=== PATIENT | male | born 1935 | race Caucasian/White ===

== ENCOUNTER 2016-09-29 07:56 | Day surgery (SDC) | payer MEDICARE, MEDICAID ==
[~2016-09-29] VITALS: Ht 162.6 cm; Wt 66.4 kg
[~2016-09-29 07:56] MED LIST: ACET-2247 PO; ASCO500 PO; BISA10S PR; CALC-898 PO; CLOT15C TP; DONE10TA PO; FAMO20 PO; LISI-660 PO; LOVA20 PO; MEMA5 PO; METF500T4 PO; MOM30 PO; MULT-1203 PO; PROHEAL PO; RISP.5 PO; SITA1TAB6 PO; TAMS0.4C32 PO
[2016-09-29] MEDS ORDERED: SODIUM CHLORIDE 0.9% 1,000 ML IV ONE ×2 (07:59→08:00)
[2016-09-29 08:32] LABS: GLUCOSE,POINT OF CARE 135 MG/DL (70-110)
[2016-09-29] MEDS ORDERED: CeFAZolin 1 GM/DEXTROSE 50 ML IV ONE (09:30)
[2016-09-29] MEDS ORDERED: FentaNYL CITRATE-PF 100 MCG/2 ML VIAL ONE (09:52)
[2016-09-29] MEDS ORDERED: MIDAZOLAM HCL 5 MG/ML VIAL ONE (09:52)
[2016-09-29 09:55] LABS: PROTHROMBIN TIME 10.7 SEC (9.4-11.6)
== END 2016-09-29 12:30 | disposition home or self-care (01) ==
LOC: SURGERY 07:56
PROVIDERS: ATTEND Internal Medicine Gastroenterology
DX: R13.10 Dysphagia, unspecified (principal); E11.9 Type 2 diabetes mellitus without complications; F10.21 Alcohol dependence, in remission; M54.9 Dorsalgia, unspecified; F03.90 Unspecified dementia, unspecified severity, without behavioral disturbance, psychotic disturbance, mood disturbance, and anxiety; I62.03 Nontraumatic chronic subdural hemorrhage; N40.0 Benign prostatic hyperplasia without lower urinary tract symptoms; Z87.891 Personal history of nicotine dependence; Z86.79 Personal history of other diseases of the circulatory system
CPT/HCPCS: 36415; 43246; 82962; 85610; 93005; J0690; J2250; J3010; J7030

== ENCOUNTER 2016-10-04 11:13 | Inpatient (IN) | payer MEDICARE, MEDICAID ==
[~2016-10-04] VITALS: Ht 167.6 cm; Wt 77.0 kg
[2016-10-04] MEDS ORDERED: NOREPINEPHRINE 4 MG/D5%-WATER 250 ML IV PRN ×3 (11:30→19:22)
[2016-10-04 11:33] LABS: GLUCOSE,POINT OF CARE 178 MG/DL (70-110)
[2016-10-04 12:20] LABS: BASOPHILS % (AUTO) 0.5 % (0.0-2.0); EOSINOPHILS % (AUTO) 0 % (1.0-6.0); HEMATOCRIT 35.8 % (41-53); HEMOGLOBIN 11.7 g/dL (13.5-17.5); LYMPHOCYTES # (AUTO) 0.4 K/uL (1.0-4.8); LYMPHOCYTES % (AUTO) 4.7 % (22.0-44.0); MEAN CORPUSCULAR HEMOGLOBIN 29.7 pg (26.0-34.0); MEAN CORPUSCULAR HGB CONC 32.8 G/dL (31.0-37.0); MEAN CORPUSCULAR VOLUME 90 fL (80-100); MONOCYTES # (AUTO) 0.1 K/uL (0.1-1.0); MONOCYTES % (AUTO) 0.8 % (2.0-9.0); NEUTROPHILS # (AUTO) 8.7 K/uL (1.8-7.7); PLATELET COUNT (AUTO) 134 K/uL (150-450); RED BLOOD CELL COUNT(AUTO) 3.96 MIL/uL (4.50-5.90); RED CELL DISTRIBUTION WIDTH 15.4 % (11.5-14.5); WHITE BLOOD COUNT (AUTO) 9.3 K/uL (4.5-11.0)
[2016-10-04 12:37] LABS: B-TYPE NATRIURETIC PEPTIDE 114 pg/mL (0-100)
[2016-10-04 12:40] LABS: ABG A-A DIFF O2 510.2 mmHg (10-20.0); ABG BASE EXCESS -6.1 mmol/L (-2.0-3.0); ABG HCO3 20.5 mmol/L (22.0-26.0); ABG OXYHEMOGLOBIN 98.1 % (94.0-100.0); ABG PCO2 29 mmHg (35-45); ABG PH 7.419 (7.35-7.450); TEMPERATURE, FAHRENHEIT, BG 99.6 FAHREN (96.0-98.6)
[2016-10-04 12:43] LABS: ALLEN TEST, BLOOD GAS Positive; IPAP, BG 14 cm H2O
[2016-10-04 12:43] LABS: RBC MORPHOLOGY COMMENT NORMAL RBC MORPH
[2016-10-04 12:44] LABS: ADD UA MICROSCOPIC YES; APPEARANCE,URINE CLOUDY (CLEAR); GLUCOSE, URINE (UA) NEGATIVE (NEGATIVE); KETONES,URINE TRACE mg/dL (NEGATIVE); LEUKOCYTE ESTERASE ,URINE SMALL (NEGATIVE); OCCULT BLOOD,URINE NEGATIVE (NEGATIVE); PROTEIN,URINE TRACE (NEGATIVE)
[2016-10-04 12:45] LABS: TROPONIN I 0.02 ng/mL (0.00-0.05)
[2016-10-04 12:50] LABS: ANION GAP 13 mmol/L (8-16); CALCIUM, TOTAL 7.2 mg/dL (8.8-10.5); CARBON DIOXIDE 22 mmol/L (22-29); CHLORIDE 106 mmol/L (98-107); CREATININE 1.23 mg/dL (0.60-1.30); GLOMERULAR FILTR. RATE CALC 56 mL/min (>60); POTASSIUM 4.5 mmol/L (3.5-5.1); SODIUM SERUM 141 mmol/L (136-145); UREA NITROGEN, BLOOD 32 mg/dL (7-18)
[2016-10-04 12:53] LABS: AMORPHOUS SEDIMENT,UR Moderate /LPF (None Seen); RBC,URINE 0-2 /HPF (0-2); SQUAMOUS EPITHELIAL CELL,UR Few /LPF (None Seen)
[2016-10-04] MEDS ORDERED: LEVOFLOXACIN 500 MG/D5% WATER 100 ML IV ONE (13:00)
[2016-10-04] MEDS ORDERED: PIPERACILLIN/TAZO 3.375 GM/D5W 50 ML IV ONE (13:00)
[2016-10-04 13:15] LABS: ALANINE AMINOTRANSFERASE 25 U/L (12-78); ALBUMIN 2.1 g/dL (3.4-5.0); ASPARTATE AMINOTRANSFERASE 22 U/L (15-37); BILIRUBIN,TOTAL 0.5 mg/dL (0.1-1.0); CREATINE KINASE, TOTAL 430 U/L (39-308); TOTAL PROTEIN, SERUM 6.2 g/dL (6.4-8.2)
[2016-10-04 13:27] LABS: LACTATE DEHYDROGENASE 207 U/L (85-227)
[2016-10-04] MEDS ORDERED: VANCOMYCIN HCL 1 GM/D5% WATER 200 ML IV ONE (15:15)
[2016-10-04] MEDS ORDERED: DEXTROSE 50%-WATER 25 GM/50 ML SYRINGE IVP PRN (15:45)
[2016-10-04] MEDS ORDERED: IPRATROPIUM BROMIDE 0.5 MG/2.5 ML NEB SOLUTION NEB PRN (15:45)
[2016-10-04] MEDS ORDERED: SODIUM CHLORIDE 0.9% 1,000 ML IV ONE (15:45)
[2016-10-04] MEDS ORDERED: ALBUTEROL SULFATE 2.5 MG/0.5 ML NEB SOLUTION NEB PRN (15:45)
[2016-10-04] MEDS ORDERED: ACETAMINOPHEN 325 MG TABLET PO PRN (15:45)
[2016-10-04] MEDS ORDERED: MAGNESIUM HYDROXIDE SUSPENSION 30 ML UDCUP PO PRN (15:45)
[2016-10-04 15:53] LABS: LACTIC ACID 5.2 mmol/L (0.4-2.0)
[2016-10-04 16:00] VITALS: BP 78/48
[2016-10-04 16:47] LABS: REFLEX LACTIC ACID? YES YES
[2016-10-04] MEDS ORDERED: LIDOCAINE HCL/PF 1% 5 ML VIAL ONE (16:56)
[2016-10-04] MEDS ORDERED: PNEUMOCOCCAL VACCINE POLYVALENT 0.5 ML VIAL [PPSV23] IM ONE (18:00)
[2016-10-04] MEDS: PIPERACILLIN/TAZO 3.375 GM/D5W 50 ML IV SCH (18:32)
[2016-10-04] MEDS: HEPARIN SODIUM,PORCINE 5,000 UNITS/ML VIAL SQ SCH ×2 (18:33→23:23)
[2016-10-04 19:47] LABS: GLUCOSE,POINT OF CARE 183 MG/DL (70-110)
[2016-10-04 20:00] VITALS: BP 120/74
[2016-10-04] MEDS: DOCUSATE SODIUM 100 MG CAPSULE PO SCH (20:35)
[2016-10-04] MEDS ORDERED: VANCOMYCIN HCL 500 MG in DEXTROSE 5%-WATER 100 ML IV ONE (22:00)
[2016-10-04] MEDS: INSULIN REGULAR, HUMAN 100 UNITS/ML SQ PRN (23:34)
[2016-10-05] VITALS (7 sets, daily range): BP systolic 96–107; BP diastolic 54–66
[2016-10-05] MEDS: PIPERACILLIN/TAZO 3.375 GM/D5W 50 ML IV SCH ×4 (00:34→18:10)
[2016-10-05 04:48] LABS: EOSINOPHILS % (AUTO) 0.5 % (1.0-6.0); HEMATOCRIT 29.7 % (41-53); HEMOGLOBIN 9.6 g/dL (13.5-17.5); LYMPHOCYTES # (AUTO) 0.6 K/uL (1.0-4.8); LYMPHOCYTES % (AUTO) 5.9 % (22.0-44.0); MEAN CORPUSCULAR HEMOGLOBIN 29.4 pg (26.0-34.0); MEAN CORPUSCULAR HGB CONC 32.4 G/dL (31.0-37.0); MEAN CORPUSCULAR VOLUME 91 fL (80-100); MONOCYTES # (AUTO) 0.1 K/uL (0.1-1.0); MONOCYTES % (AUTO) 1.1 % (2.0-9.0); NEUTROPHILS # (AUTO) 9.5 K/uL (1.8-7.7); PLATELET COUNT (AUTO) 137 K/uL (150-450); RED BLOOD CELL COUNT(AUTO) 3.27 MIL/uL (4.50-5.90); RED CELL DISTRIBUTION WIDTH 15.1 % (11.5-14.5); WHITE BLOOD COUNT (AUTO) 10.3 K/uL (4.5-11.0)
[2016-10-05] MEDS: INSULIN REGULAR, HUMAN 100 UNITS/ML SQ PRN (04:53)
[2016-10-05 04:55] LABS: ANION GAP 10 mmol/L (8-16); CALCIUM, TOTAL 6.9 mg/dL (8.8-10.5); CARBON DIOXIDE 24 mmol/L (22-29); CHLORIDE 107 mmol/L (98-107); CREATININE 1.01 mg/dL (0.60-1.30); GLOMERULAR FILTR. RATE CALC > 60 mL/min (>60); POTASSIUM 3.7 mmol/L (3.5-5.1); SODIUM SERUM 141 mmol/L (136-145); UREA NITROGEN, BLOOD 24 mg/dL (7-18)
[2016-10-05 05:06] LABS: NEUTROPHILS % (AUTO) 92.5 % (40.0-70.0)
[2016-10-05] MEDS: HEPARIN SODIUM,PORCINE 5,000 UNITS/ML VIAL SQ SCH ×3 (08:17→23:59)
[2016-10-05] MEDS: PANTOPRAZOLE SODIUM 40 MG/VIAL IVP SCH (08:17)
[2016-10-05] MEDS: DOCUSATE SODIUM 100 MG CAPSULE PO SCH ×2 (08:17→21:00)
[2016-10-05] MEDS: VANCOMYCIN HCL 1.25 GM in DEXTROSE 5%-WATER 250 ML IV SCH (08:17)
[2016-10-05 11:59] LABS: GLUCOSE,POINT OF CARE 108 MG/DL (70-110)
[2016-10-05] MEDS ORDERED: HEPARIN SODIUM 1000 UNITS/NS 500 ML ONE (13:58)
[2016-10-05 18:27] LABS: GLUCOSE,POINT OF CARE 103 MG/DL (70-110)
[2016-10-05 18:27] LABS: GLUCOSE COMMENT 1 Received Meds; GLUCOSE,POINT OF CARE 154 MG/DL (70-110)
[2016-10-05 18:27] LABS: GLUCOSE,POINT OF CARE 108 MG/DL (70-110)
[2016-10-05] MEDS: LACTOBACILLUS ACIDOPHILUS/BULGARICUS GRANULES PACKET PO SCH (21:14)
[2016-10-06 05:20] VITALS: BP 102/50
[2016-10-06 07:05] VITALS: BP 119/68
[2016-10-06 07:36] LABS: ANION GAP 10 mmol/L (8-16); CALCIUM, TOTAL 7.2 mg/dL (8.8-10.5); CARBON DIOXIDE 25 mmol/L (22-29); CHLORIDE 107 mmol/L (98-107); CREATININE 0.91 mg/dL (0.60-1.30); GLOMERULAR FILTR. RATE CALC > 60 mL/min (>60); POTASSIUM 3.1 mmol/L (3.5-5.1); SODIUM SERUM 142 mmol/L (136-145); UREA NITROGEN, BLOOD 17 mg/dL (7-18)
[2016-10-06 07:56] LABS: GLUCOSE,POINT OF CARE 99 MG/DL (70-110)
[2016-10-06 07:56] LABS: GLUCOSE,POINT OF CARE 83 MG/DL (70-110)
[2016-10-06] MEDS: LACTOBACILLUS ACIDOPHILUS/BULGARICUS GRANULES PACKET PO SCH ×3 (09:00→20:19)
[2016-10-06] MEDS: MULTIVITAMINS WITH MINERALS, THERAPEUTIC 15 ML UDCUP PEG SCH (09:00)
[2016-10-06] MEDS: HEPARIN SODIUM,PORCINE 5,000 UNITS/ML VIAL SQ SCH ×3 (09:55→23:57)
[2016-10-06] MEDS: PANTOPRAZOLE SODIUM 40 MG/VIAL IVP SCH (09:55)
[2016-10-06] MEDS: DOCUSATE SODIUM 100 MG CAPSULE PO SCH ×2 (09:55→20:19)
[2016-10-06] MEDS: PIPERACILLIN/TAZO 3.375 GM/D5W 50 ML IV SCH ×5 (09:55→23:58)
[2016-10-06 11:03] VITALS: BP 115/65
[2016-10-06] MEDS ORDERED: HEPARIN SODIUM 1000 UNITS/NS 500 ML ONE (11:39)
[2016-10-06] MEDS: VANCOMYCIN HCL 1.25 GM in DEXTROSE 5%-WATER 250 ML IV SCH (12:50)
[2016-10-06 15:13] VITALS: BP 125/65
[2016-10-06] MEDS ORDERED: POTASSIUM CHLORIDE 20 MEQ ER TABLET PO ONE (17:45)
[2016-10-06 19:55] VITALS: BP 137/70
[2016-10-07] VITALS (7 sets, daily range): BP systolic 104–120; BP diastolic 54–64
[2016-10-07 02:52] LABS: GLUCOSE,POINT OF CARE 128 MG/DL (70-110)
[2016-10-07 02:52] LABS: GLUCOSE COMMENT 1 Received Meds; GLUCOSE,POINT OF CARE 100 MG/DL (70-110)
[2016-10-07] MEDS: PIPERACILLIN/TAZO 3.375 GM/D5W 50 ML IV SCH ×3 (05:34→20:27)
[2016-10-07 06:09] LABS: ANION GAP 7 mmol/L (8-16); CALCIUM, TOTAL 7.1 mg/dL (8.8-10.5); CARBON DIOXIDE 26 mmol/L (22-29); CHLORIDE 107 mmol/L (98-107); GLOMERULAR FILTR. RATE CALC > 60 mL/min (>60); POTASSIUM 3.3 mmol/L (3.5-5.1); SODIUM SERUM 140 mmol/L (136-145); UREA NITROGEN, BLOOD 12 mg/dL (7-18)
[2016-10-07] MEDS: VANCOMYCIN HCL 1.25 GM in DEXTROSE 5%-WATER 250 ML IV SCH (08:15)
[2016-10-07] MEDS: LACTOBACILLUS ACIDOPHILUS/BULGARICUS GRANULES PACKET PO SCH ×3 (08:15→20:27)
[2016-10-07] MEDS: PANTOPRAZOLE SODIUM 40 MG/VIAL IVP SCH (08:15)
[2016-10-07] MEDS: HEPARIN SODIUM,PORCINE 5,000 UNITS/ML VIAL SQ SCH ×2 (08:15→16:30)
[2016-10-07] MEDS: MULTIVITAMINS WITH MINERALS, THERAPEUTIC 15 ML UDCUP PEG SCH (08:15)
[2016-10-07] MEDS: DOCUSATE SODIUM 100 MG CAPSULE PO SCH ×2 (08:15→20:27)
[2016-10-07] MEDS: INSULIN REGULAR, HUMAN 100 UNITS/ML SQ PRN (12:35)
[2016-10-07] MEDS: POTASSIUM CHLORIDE 20 MEQ ER TABLET PO PRN (13:56)
[2016-10-07 19:47] LABS: GLUCOSE,POINT OF CARE 138 MG/DL (70-110)
[2016-10-07 19:47] LABS: GLUCOSE COMMENT 1 Received Meds; GLUCOSE,POINT OF CARE 170 MG/DL (70-110)
[2016-10-07 19:47] LABS: GLUCOSE,POINT OF CARE 112 MG/DL (70-110)
[2016-10-07 20:36] LABS: BASOPHILS % (AUTO) 0.3 % (0.0-2.0); EOSINOPHILS % (AUTO) 1.8 % (1.0-6.0); HEMATOCRIT 26.3 % (41-53); HEMOGLOBIN 8.6 g/dL (13.5-17.5); LYMPHOCYTES # (AUTO) 0.7 K/uL (1.0-4.8); LYMPHOCYTES % (AUTO) 9.8 % (22.0-44.0); MEAN CORPUSCULAR HEMOGLOBIN 29.4 pg (26.0-34.0); MEAN CORPUSCULAR HGB CONC 32.9 G/dL (31.0-37.0); MEAN CORPUSCULAR VOLUME 89 fL (80-100); MONOCYTES # (AUTO) 0.3 K/uL (0.1-1.0); MONOCYTES % (AUTO) 4.6 % (2.0-9.0); NEUTROPHILS # (AUTO) 5.8 K/uL (1.8-7.7); NEUTROPHILS % (AUTO) 83.5 % (40.0-70.0); PLATELET COUNT (AUTO) 168 K/uL (150-450); RED BLOOD CELL COUNT(AUTO) 2.94 MIL/uL (4.50-5.90); RED CELL DISTRIBUTION WIDTH 15.1 % (11.5-14.5); WHITE BLOOD COUNT (AUTO) 6.9 K/uL (4.5-11.0)
[2016-10-08] MEDS: PIPERACILLIN/TAZO 3.375 GM/D5W 50 ML IV SCH ×4 (02:14→19:43)
[2016-10-08] MEDS: HEPARIN SODIUM,PORCINE 5,000 UNITS/ML VIAL SQ SCH ×4 (02:14→23:58)
[2016-10-08 04:55] VITALS: BP 114/56
[2016-10-08 06:14] LABS: BASOPHILS % (AUTO) 0.1 % (0.0-2.0); EOSINOPHILS % (AUTO) 1.9 % (1.0-6.0); HEMATOCRIT 26.2 % (41-53); HEMOGLOBIN 8.4 g/dL (13.5-17.5); LYMPHOCYTES # (AUTO) 0.7 K/uL (1.0-4.8); LYMPHOCYTES % (AUTO) 10.1 % (22.0-44.0); MEAN CORPUSCULAR HEMOGLOBIN 28.9 pg (26.0-34.0); MEAN CORPUSCULAR HGB CONC 32.2 G/dL (31.0-37.0); MEAN CORPUSCULAR VOLUME 90 fL (80-100); MONOCYTES # (AUTO) 0.4 K/uL (0.1-1.0); NEUTROPHILS # (AUTO) 5.3 K/uL (1.8-7.7); NEUTROPHILS % (AUTO) 81.9 % (40.0-70.0); PLATELET COUNT (AUTO) 168 K/uL (150-450); RED BLOOD CELL COUNT(AUTO) 2.92 MIL/uL (4.50-5.90); RED CELL DISTRIBUTION WIDTH 15.1 % (11.5-14.5); WHITE BLOOD COUNT (AUTO) 6.5 K/uL (4.5-11.0)
[2016-10-08 06:32] LABS: ANION GAP 6 mmol/L (8-16); CARBON DIOXIDE 28 mmol/L (22-29); CHLORIDE 106 mmol/L (98-107); CREATININE 0.73 mg/dL (0.60-1.30); GLOMERULAR FILTR. RATE CALC > 60 mL/min (>60); POTASSIUM 3.3 mmol/L (3.5-5.1); SODIUM SERUM 140 mmol/L (136-145); UREA NITROGEN, BLOOD 8 mg/dL (7-18)
[2016-10-08 07:21] VITALS: BP 107/53
[2016-10-08] MEDS: DOCUSATE SODIUM 100 MG CAPSULE PO SCH ×2 (09:39→23:57)
[2016-10-08] MEDS: LACTOBACILLUS ACIDOPHILUS/BULGARICUS GRANULES PACKET PO SCH ×3 (09:39→20:52)
[2016-10-08] MEDS: MULTIVITAMINS WITH MINERALS, THERAPEUTIC 15 ML UDCUP PEG SCH (09:39)
[2016-10-08] MEDS: PANTOPRAZOLE SODIUM 40 MG/VIAL IVP SCH (09:40)
[2016-10-08] MEDS: VANCOMYCIN HCL 1.25 GM in DEXTROSE 5%-WATER 250 ML IV SCH (09:46)
[2016-10-08 11:38] VITALS: BP 121/66
[2016-10-08] MEDS: POTASSIUM CHLORIDE 20 MEQ ER TABLET PO PRN (11:57)
[2016-10-08] MEDS: INSULIN REGULAR, HUMAN 100 UNITS/ML SQ PRN (12:07)
[2016-10-08 15:26] VITALS: BP 124/58
[2016-10-08] MEDS ORDERED: SODIUM CHLORIDE 0.9% 250 ML IV ONE (19:36)
[2016-10-08 20:02] VITALS: BP 123/56
[2016-10-08 20:27] LABS: GLUCOSE COMMENT 1 Received Meds; GLUCOSE,POINT OF CARE 139 MG/DL (70-110)
[2016-10-08 20:27] LABS: GLUCOSE,POINT OF CARE 139 MG/DL (70-110)
[2016-10-08] MEDS: VANCOMYCIN HCL 1 GM/D5% WATER 200 ML IV SCH (20:52)
[2016-10-08 23:43] VITALS: BP 117/58
[2016-10-09] MEDS: INSULIN REGULAR, HUMAN 100 UNITS/ML SQ PRN ×3 (00:14→17:24)
[2016-10-09] MEDS ORDERED: SODIUM CL IRRIG SOLN BOTTLE 0 ML IRRIG ONE (00:36)
[2016-10-09] MEDS: PIPERACILLIN/TAZO 3.375 GM/D5W 50 ML IV SCH ×4 (00:57→18:14)
[2016-10-09 05:24] VITALS: BP 105/53
[2016-10-09 06:33] LABS: ANION GAP 6 mmol/L (8-16); BASOPHILS # (AUTO) 0.01 K/uL (0.00-0.20); BASOPHILS % (AUTO) 0.1 % (0.0-2.0); CALCIUM, TOTAL 7.4 mg/dL (8.8-10.5); CARBON DIOXIDE 27 mmol/L (22-29); CHLORIDE 105 mmol/L (98-107); CREATININE 0.76 mg/dL (0.60-1.30); EOSINOPHILS # (AUTO) 0.11 K/uL (0.00-0.70); EOSINOPHILS % (AUTO) 1.77 % (1.0-6.0); GLOMERULAR FILTR. RATE CALC > 60 mL/min (>60); HEMATOCRIT 24.3 % (41-53); HEMOGLOBIN 8.2 g/dL (13.5-17.5); LYMPHOCYTES # (AUTO) 0.8 K/uL (1.0-4.8); MEAN CORPUSCULAR HGB CONC 33.6 G/dL (31.0-37.0); MEAN CORPUSCULAR VOLUME 89 fL (80-100); MONOCYTES # (AUTO) 0.5 K/uL (0.1-1.0); MONOCYTES % (AUTO) 7.5 % (2.0-9.0); NEUTROPHILS % (AUTO) 78.6 % (40.0-70.0); PLATELET COUNT (AUTO) 172 K/uL (150-450); POTASSIUM 3.5 mmol/L (3.5-5.1); RED BLOOD CELL COUNT(AUTO) 2.72 MIL/uL (4.50-5.90); SODIUM SERUM 138 mmol/L (136-145); UREA NITROGEN, BLOOD 8 mg/dL (7-18); WHITE BLOOD COUNT (AUTO) 6.4 K/uL (4.5-11.0)
[2016-10-09 07:09] VITALS: BP 116/49
[2016-10-09] MEDS: DOCUSATE SODIUM 100 MG CAPSULE PO SCH ×2 (07:29→21:14)
[2016-10-09] MEDS: LACTOBACILLUS ACIDOPHILUS/BULGARICUS GRANULES PACKET PO SCH ×3 (07:29→21:14)
[2016-10-09] MEDS: MULTIVITAMINS WITH MINERALS, THERAPEUTIC 15 ML UDCUP PEG SCH (07:29)
[2016-10-09] MEDS: PANTOPRAZOLE SODIUM 40 MG/VIAL IVP SCH (07:29)
[2016-10-09] MEDS: HEPARIN SODIUM,PORCINE 5,000 UNITS/ML VIAL SQ SCH ×2 (07:29→17:18)
[2016-10-09 07:57] LABS: GLUCOSE COMMENT 1 Received Meds; GLUCOSE,POINT OF CARE 185 MG/DL (70-110)
[2016-10-09] MEDS: VANCOMYCIN HCL 1 GM/D5% WATER 200 ML IV SCH ×2 (08:42→20:38)
[2016-10-09 11:08] VITALS: BP 120/62
[2016-10-09 15:22] VITALS: BP 123/63
[2016-10-09] MEDS: POTASSIUM CHL 10 MEQ/WATER 50 ML IV PRN ×2 (17:27→23:00)
[2016-10-09] MEDS ORDERED: SODIUM CHLORIDE 0.9% 500 ML IV ONE (17:27)
[2016-10-09 18:13] LABS: GLUCOSE COMMENT 1 Received Meds; GLUCOSE,POINT OF CARE 213 MG/DL (70-110)
[2016-10-09 18:13] LABS: GLUCOSE COMMENT 1 Received Meds; GLUCOSE,POINT OF CARE 182 MG/DL (70-110)
[2016-10-09 18:13] LABS: GLUCOSE,POINT OF CARE 132 MG/DL (70-110)
[2016-10-09 18:42] LABS: GLUCOSE COMMENT 1 Received Meds; GLUCOSE,POINT OF CARE 170 MG/DL (70-110)
[2016-10-09 19:53] VITALS: BP 130/55
[2016-10-10] VITALS: BP 129/63
[2016-10-10] MEDS: HEPARIN SODIUM,PORCINE 5,000 UNITS/ML VIAL SQ SCH ×3 (01:22→16:19)
[2016-10-10] MEDS: PIPERACILLIN/TAZO 3.375 GM/D5W 50 ML IV SCH ×3 (01:23→13:21)
[2016-10-10] MEDS: INSULIN REGULAR, HUMAN 100 UNITS/ML SQ PRN ×3 (01:37→11:10)
[2016-10-10] MEDS: POTASSIUM CHL 10 MEQ/WATER 50 ML IV PRN (02:45)
[2016-10-10 03:01] LABS: GLUCOSE COMMENT 1 Received Meds; GLUCOSE,POINT OF CARE 144 MG/DL (70-110)
[2016-10-10 05:54] VITALS: BP 107/55
[2016-10-10 06:20] LABS: BASOPHILS % (AUTO) 0.1 % (0.0-2.0); EOSINOPHILS % (AUTO) 1.8 % (1.0-6.0); HEMATOCRIT 26.2 % (41-53); HEMOGLOBIN 8.5 g/dL (13.5-17.5); LYMPHOCYTES # (AUTO) 0.9 K/uL (1.0-4.8); LYMPHOCYTES % (AUTO) 13.7 % (22.0-44.0); MEAN CORPUSCULAR HEMOGLOBIN 29.4 pg (26.0-34.0); MEAN CORPUSCULAR HGB CONC 32.4 G/dL (31.0-37.0); MEAN CORPUSCULAR VOLUME 91 fL (80-100); MONOCYTES # (AUTO) 0.4 K/uL (0.1-1.0); MONOCYTES % (AUTO) 6.3 % (2.0-9.0); NEUTROPHILS # (AUTO) 5.2 K/uL (1.8-7.7); NEUTROPHILS % (AUTO) 78.1 % (40.0-70.0); PLATELET COUNT (AUTO) 208 K/uL (150-450); RED BLOOD CELL COUNT(AUTO) 2.89 MIL/uL (4.50-5.90); RED CELL DISTRIBUTION WIDTH 15.1 % (11.5-14.5); WHITE BLOOD COUNT (AUTO) 6.7 K/uL (4.5-11.0)
[2016-10-10 06:25] LABS: ANION GAP 6 mmol/L (8-16); CALCIUM, TOTAL 7.5 mg/dL (8.8-10.5); CARBON DIOXIDE 28 mmol/L (22-29); CHLORIDE 105 mmol/L (98-107); GLOMERULAR FILTR. RATE CALC > 60 mL/min (>60); SODIUM SERUM 139 mmol/L (136-145); UREA NITROGEN, BLOOD 9 mg/dL (7-18)
[2016-10-10 06:59] LABS: GLUCOSE COMMENT 1 Received Meds; GLUCOSE,POINT OF CARE 165 MG/DL (70-110)
[2016-10-10 07:34] VITALS: BP 112/57
[2016-10-10] MEDS: LACTOBACILLUS ACIDOPHILUS/BULGARICUS GRANULES PACKET PO SCH ×2 (07:58→16:19)
[2016-10-10] MEDS: DOCUSATE SODIUM 100 MG CAPSULE PO SCH (07:58)
[2016-10-10] MEDS: MULTIVITAMINS WITH MINERALS, THERAPEUTIC 15 ML UDCUP PEG SCH (07:58)
[2016-10-10] MEDS: PANTOPRAZOLE SODIUM 40 MG/VIAL IVP SCH (07:58)
[2016-10-10] MEDS: VANCOMYCIN HCL 1 GM/D5% WATER 200 ML IV SCH (07:59)
[2016-10-10 11:30] VITALS: BP 126/66
[2016-10-10 11:57] LABS: GLUCOSE COMMENT 1 Received Meds; GLUCOSE,POINT OF CARE 216 MG/DL (70-110)
[2016-10-10 15:22] VITALS: BP 122/59
== END 2016-10-10 17:00 | DRG 871 ==
LOC: EMS 11:15 → ICU 14:26 → 5N 10-05 22:30 → 5S 10-09 18:10
PROVIDERS: ADMIT Internal Medicine; ATTEND Internal Medicine
PROC: 5A09357 Assistance with Respiratory Ventilation, Less than 24 Consecutive Hours, Continuous Positive Airway Pressure (ICD-10-PCS; principal; 2016-10-04)
PROC: 02HV33Z Insertion of Infusion Device into Superior Vena Cava, Percutaneous Approach (ICD-10-PCS; 2016-10-04)
PROC: B548ZZA Ultrasonography of Superior Vena Cava, Guidance (ICD-10-PCS; 2016-10-04)
PROC: 06HM33Z Insertion of Infusion Device into Right Femoral Vein, Percutaneous Approach (ICD-10-PCS; 2016-10-04)
PROC: B54BZZA Ultrasonography of Right Lower Extremity Veins, Guidance (ICD-10-PCS; 2016-10-04)
DX: A41.01 Sepsis due to Methicillin susceptible Staphylococcus aureus (principal); E43 Unspecified severe protein-calorie malnutrition; J96.01 Acute respiratory failure with hypoxia; J18.9 Pneumonia, unspecified organism; R65.21 Severe sepsis with septic shock; R62.7 Adult failure to thrive; E11.9 Type 2 diabetes mellitus without complications; F03.90 Unspecified dementia, unspecified severity, without behavioral disturbance, psychotic disturbance, mood disturbance, and anxiety; R13.10 Dysphagia, unspecified; E78.5 Hyperlipidemia, unspecified; I10 Essential (primary) hypertension; Z66 Do not resuscitate; Z86.73 Personal history of transient ischemic attack (TIA), and cerebral infarction without residual deficits; Z93.1 Gastrostomy status; Z68.27 Body mass index [BMI] 27.0-27.9, adult
CPT/HCPCS: 36569; 51702; 70450; 71250; 82271; 82805; 82962; 83605; 83615; 84132; 86850; 86900; 86901; 87040; 87081; 87086; 87324; 87449; 90471; 93005; 93306; 96365; 96366; 96367; 96368; 99291; C9113; J1644; J1956; J2543; J3370; J3480; J3490; J7030; J7040; J7050; J7060

== ENCOUNTER 2016-11-24 01:36 | Inpatient (IN) | payer MEDICARE, MEDICAID ==
[~2016-11-24] VITALS: Ht 177.8 cm; Wt 76.9 kg
[~2016-11-24 01:36] MED LIST changes: -CLOT15C TP; -METF500T4 PO; -PROHEAL PO; -RISP.5 PO; -TAMS0.4C32 PO
[2016-11-24] MEDS ORDERED: HEPA100D17 SQ (01:52)
[2016-11-24 02:42] LABS: ANION GAP 8 mmol/L (8-16); CARBON DIOXIDE 26 mmol/L (22-29); CHLORIDE 102 mmol/L (98-107); CREATININE 1.16 mg/dL (0.60-1.30); GLOMERULAR FILTR. RATE CALC 60 mL/min (>60); POTASSIUM 4.7 mmol/L (3.5-5.1); SODIUM SERUM 136 mmol/L (136-145); UREA NITROGEN, BLOOD 50 mg/dL (7-18)
[2016-11-24 02:48] LABS: ALANINE AMINOTRANSFERASE 21 U/L (12-78); ALBUMIN 1.9 g/dL (3.4-5.0); ASPARTATE AMINOTRANSFERASE 22 U/L (15-37); BILIRUBIN,TOTAL 0.3 mg/dL (0.1-1.0); TOTAL PROTEIN, SERUM 7.3 g/dL (6.4-8.2)
[2016-11-24 02:53] LABS: BASOPHILS # (AUTO) 0.01 K/uL (0.00-0.20); BASOPHILS % (AUTO) 0.1 % (0.0-2.0); EOSINOPHILS # (AUTO) 0.06 K/uL (0.00-0.70); EOSINOPHILS % (AUTO) 0.78 % (1.0-6.0); HEMATOCRIT 24.1 % (41-53); HEMOGLOBIN 7.8 g/dL (13.5-17.5); LYMPHOCYTES # (AUTO) 0.8 K/uL (1.0-4.8); MEAN CORPUSCULAR HEMOGLOBIN 28.4 pg (26.0-34.0); MEAN CORPUSCULAR HGB CONC 32.2 G/dL (31.0-37.0); MEAN CORPUSCULAR VOLUME 88 fL (80-100); MONOCYTES # (AUTO) 0.4 K/uL (0.1-1.0); MONOCYTES % (AUTO) 5.2 % (2.0-9.0); NEUTROPHILS # (AUTO) 6.3 K/uL (1.8-7.7); NEUTROPHILS % (AUTO) 83.9 % (40.0-70.0); PLATELET COUNT (AUTO) 238 K/uL (150-450); RED BLOOD CELL COUNT(AUTO) 2.73 MIL/uL (4.50-5.90); RED CELL DISTRIBUTION WIDTH 17.6 % (11.5-14.5); WHITE BLOOD COUNT (AUTO) 7.5 K/uL (4.5-11.0)
[2016-11-24 02:58] LABS: PROTHROMBIN TIME 10.7 SEC (9.4-11.6)
[2016-11-24 02:59] LABS: APPEARANCE,URINE CLOUDY (CLEAR); GLUCOSE, URINE (UA) NEGATIVE (NEGATIVE); KETONES,URINE NEGATIVE (NEGATIVE); LEUKOCYTE ESTERASE ,URINE LARGE (NEGATIVE); OCCULT BLOOD,URINE MODERATE (NEGATIVE); PH,URINE 8.5 (5.0-8.0); PROTEIN,URINE POS 1+ (NEGATIVE)
[2016-11-24 03:05] LABS: ADD UA MICROSCOPIC YES
[2016-11-24 03:08] LABS: LACTIC ACID 2.6 mmol/L (0.4-2.0)
[2016-11-24 03:31] LABS: SQUAMOUS EPITHELIAL CELL,UR Few /LPF (None Seen); TRIPLE PHOSPHATE CRYSTAL,UR Moderate /LPF (None Seen)
[2016-11-24] MEDS ORDERED: ALBUTEROL SULFATE 2.5 MG/0.5 ML NEB SOLUTION NEB ONE (03:45)
[2016-11-24] MEDS ORDERED: 0.9% SODIUM CHLORIDE 5 ML NEB SOLUTION NEB ONE ×2 (03:55→18:55)
[2016-11-24 04:27] LABS: REFLEX LACTIC ACID? YES YES
[2016-11-24] MEDS ORDERED: CefTRIAXone SODIUM 2 GM in DEXTROSE 5%-WATER 50 ML IV ONE (04:45)
[2016-11-24] MEDS ORDERED: VANCOMYCIN HCL 1 GM/D5% WATER 200 ML IV ONE (04:45)
[2016-11-24] MEDS ORDERED: ACETAMINOPHEN 650 MG RECTAL SUPPOSITORY PR ONE ×2 (05:30)
[2016-11-24] MEDS ORDERED: PERMETHRIN 5% 60 GM CREAM TP ONE (06:15)
[2016-11-24] MEDS ORDERED: SODIUM CHLORIDE 0.9% 1,000 ML IV ONE ×2 (06:15→12:15)
[2016-11-24] MEDS ORDERED: MORPHINE SULFATE 2 MG/ML SYRINGE IVP PRN (07:30)
[2016-11-24 08:17] LABS: GLUCOSE,POINT OF CARE 133 MG/DL (70-110)
[2016-11-24] MEDS ORDERED: VANCOMYCIN HCL 500 MG in DEXTROSE 5%-WATER 100 ML IV ONE (08:30)
[2016-11-24] MEDS ORDERED: OxyCODONE HCL/ACETAMINOPHEN 5-325 MG TABLET PO PRN ×2 (08:45)
[2016-11-24] MEDS ORDERED: *CLINICAL-LEVOFLOXACIN IVPB DOSING CLINICAL ONE ×2 (08:45)
[2016-11-24] MEDS ORDERED: ONDANSETRON HCL 4 MG/2 ML VIAL IVP PRN (08:45)
[2016-11-24] MEDS ORDERED: 0.9% SODIUM CHLORIDE 10 ML SYRINGE IVP PRN (08:45)
[2016-11-24] MEDS ORDERED: CefTRIAXone 1 GM/DEXTROSE 50 ML IV ONE (09:00)
[2016-11-24] MEDS ORDERED: DOCUSATE SODIUM 100 MG CAPSULE PO SCH (09:00)
[2016-11-24] MEDS ORDERED: MetroNIDAZOLE 500 MG TABLET PO SCH (09:00)
[2016-11-24] MEDS ORDERED: ENOXAPARIN SODIUM 40 MG/0.4 ML PF SYRINGE SQ SCH ×2 (09:00)
[2016-11-24 09:22] VITALS: BP 103/58
[2016-11-24 09:22] LABS: GLUCOSE,POINT OF CARE 123 MG/DL (70-110)
[2016-11-24 09:40] VITALS: BP 103/58
[2016-11-24] MEDS ORDERED: LEVOFLOXACIN 750 MG/D5% WATER 150 ML IV SCH (10:00)
[2016-11-24] MEDS ORDERED: ALBUTEROL SULFATE 2.5 MG/0.5 ML NEB SOLUTION NEB SCH (11:00)
[2016-11-24] MEDS: PANTOPRAZOLE SODIUM 40 MG/VIAL IVP SCH (11:19)
[2016-11-24 12:00] VITALS: BP 103/60
[2016-11-24] MEDS ORDERED: SODIUM CHLORIDE 0.9% 250 ML IV ONE (12:43)
[2016-11-24] MEDS: MetroNIDAZOLE 500 MG/NACL 100 ML IV SCH ×2 (12:49→21:02)
[2016-11-24] MEDS ORDERED: PNEUMOCOCCAL VACCINE POLYVALENT 0.5 ML VIAL [PPSV23] IM ONE (15:15)
[2016-11-24 16:00] VITALS: BP 98/51
[2016-11-24 20:00] VITALS: BP 115/50
[2016-11-24] MEDS ORDERED: DOCUSATE SODIUM 100 MG CAPSULE PO PRN (21:00)
[2016-11-25] VITALS (12 sets, daily range): BP systolic 110–129; BP diastolic 50–76
[2016-11-25] MEDS: MetroNIDAZOLE 500 MG/NACL 100 ML IV SCH ×3 (05:12→20:03)
[2016-11-25 05:58] LABS: BASOPHILS # (AUTO) 0.01 K/uL (0.00-0.20); BASOPHILS % (AUTO) 0.2 % (0.0-2.0); EOSINOPHILS # (AUTO) 0.27 K/uL (0.00-0.70); EOSINOPHILS % (AUTO) 6.89 % (1.0-6.0); LYMPHOCYTES # (AUTO) 0.7 K/uL (1.0-4.8); LYMPHOCYTES % (AUTO) 16.7 % (22.0-44.0); MEAN CORPUSCULAR HEMOGLOBIN 28.2 pg (26.0-34.0); MEAN CORPUSCULAR VOLUME 88 fL (80-100); MONOCYTES # (AUTO) 0.4 K/uL (0.1-1.0); MONOCYTES % (AUTO) 10.1 % (2.0-9.0); NEUTROPHILS # (AUTO) 2.6 K/uL (1.8-7.7); NEUTROPHILS % (AUTO) 66.1 % (40.0-70.0); PLATELET COUNT (AUTO) 216 K/uL (150-450); RED BLOOD CELL COUNT(AUTO) 2.38 MIL/uL (4.50-5.90); RED CELL DISTRIBUTION WIDTH 17.1 % (11.5-14.5); WHITE BLOOD COUNT (AUTO) 3.9 K/uL (4.5-11.0)
[2016-11-25 06:15] LABS: ANION GAP 9 mmol/L (8-16); CALCIUM, TOTAL 7.8 mg/dL (8.8-10.5); CARBON DIOXIDE 25 mmol/L (22-29); CHLORIDE 108 mmol/L (98-107); CREATININE 1.03 mg/dL (0.60-1.30); GLOMERULAR FILTR. RATE CALC > 60 mL/min (>60); SODIUM SERUM 142 mmol/L (136-145); UREA NITROGEN, BLOOD 35 mg/dL (7-18)
[2016-11-25 07:03] LABS: HEMOGLOBIN 6.7 g/dL (13.5-17.5)
[2016-11-25 07:04] LABS: HEMATOCRIT 20.9 % (41-53)
[2016-11-25 07:07] LABS: ALANINE AMINOTRANSFERASE 21 U/L (12-78); ALBUMIN 1.7 g/dL (3.4-5.0); ASPARTATE AMINOTRANSFERASE 26 U/L (15-37); BILIRUBIN,TOTAL 0.3 mg/dL (0.1-1.0); TOTAL PROTEIN, SERUM 6.5 g/dL (6.4-8.2)
[2016-11-25] MEDS ORDERED: SODIUM CHLORIDE 0.9% 500 ML IV ONE (07:48)
[2016-11-25 08:36] LABS: RBC MORPHOLOGY COMMENT ABNORMAL RBC MORPH
[2016-11-25] MEDS: PANTOPRAZOLE SODIUM 40 MG/VIAL IVP SCH (10:20)
[2016-11-25] MEDS ORDERED: VANCOMYCIN HCL 1 GM/D5% WATER 200 ML IV ONE (10:30)
[2016-11-25] MEDS ORDERED: HEPA500017 SQ (11:17)
[2016-11-25 18:11] LABS: HEMATOCRIT 25.8 % (41-53); HEMOGLOBIN 8.4 g/dL (13.5-17.5)
[2016-11-25] MEDS: VANCOMYCIN HCL 750 MG in DEXTROSE 5%-WATER 150 ML IV SCH (20:03)
[2016-11-26] VITALS (7 sets, daily range): BP systolic 109–147; BP diastolic 53–78
[2016-11-26] MEDS: MetroNIDAZOLE 500 MG/NACL 100 ML IV SCH ×3 (03:54→19:52)
[2016-11-26 06:02] LABS: BASOPHILS # (AUTO) 0.02 K/uL (0.00-0.20); BASOPHILS % (AUTO) 0.5 % (0.0-2.0); EOSINOPHILS # (AUTO) 0.57 K/uL (0.00-0.70); EOSINOPHILS % (AUTO) 13.47 % (1.0-6.0); HEMATOCRIT 25.7 % (41-53); HEMOGLOBIN 8.2 g/dL (13.5-17.5); LYMPHOCYTES # (AUTO) 0.8 K/uL (1.0-4.8); LYMPHOCYTES % (AUTO) 19.6 % (22.0-44.0); MEAN CORPUSCULAR HEMOGLOBIN 28.6 pg (26.0-34.0); MEAN CORPUSCULAR HGB CONC 32.1 G/dL (31.0-37.0); MEAN CORPUSCULAR VOLUME 89 fL (80-100); MONOCYTES # (AUTO) 0.3 K/uL (0.1-1.0); MONOCYTES % (AUTO) 8.1 % (2.0-9.0); NEUTROPHILS # (AUTO) 2.5 K/uL (1.8-7.7); NEUTROPHILS % (AUTO) 58.4 % (40.0-70.0); PLATELET COUNT (AUTO) 230 K/uL (150-450); RED BLOOD CELL COUNT(AUTO) 2.89 MIL/uL (4.50-5.90); RED CELL DISTRIBUTION WIDTH 16.5 % (11.5-14.5); WHITE BLOOD COUNT (AUTO) 4.2 K/uL (4.5-11.0)
[2016-11-26 06:45] LABS: ANION GAP 8 mmol/L (8-16); CARBON DIOXIDE 26 mmol/L (22-29); CHLORIDE 110 mmol/L (98-107); CREATININE 0.91 mg/dL (0.60-1.30); GLOMERULAR FILTR. RATE CALC > 60 mL/min (>60); POTASSIUM 3.5 mmol/L (3.5-5.1); SODIUM SERUM 144 mmol/L (136-145); UREA NITROGEN, BLOOD 27 mg/dL (7-18)
[2016-11-26] MEDS: VANCOMYCIN HCL 750 MG in DEXTROSE 5%-WATER 150 ML IV SCH ×2 (08:50→21:15)
[2016-11-26] MEDS: PANTOPRAZOLE SODIUM 40 MG/VIAL IVP SCH (08:51)
[2016-11-26] MEDS: LEVOFLOXACIN 750 MG/D5% WATER 150 ML IV SCH ×2 (10:00→13:06)
[2016-11-26] MEDS: MULTIVITAMINS WITH MINERALS, THERAPEUTIC 15 ML UDCUP PEG SCH ×3 (12:56→13:07)
[2016-11-26] MEDS: CefTRIAXone 1 GM/DEXTROSE 50 ML IV SCH (23:20)
[2016-11-27] MEDS: MetroNIDAZOLE 500 MG/NACL 100 ML IV SCH ×3 (02:58→21:02)
[2016-11-27 04:30] VITALS: BP 138/69
[2016-11-27 07:25] VITALS: BP 108/61
[2016-11-27] MEDS ORDERED: SODIUM CHLORIDE 0.9% 100 ML ONE (07:49)
[2016-11-27] MEDS: VANCOMYCIN HCL 750 MG in DEXTROSE 5%-WATER 150 ML IV SCH (08:00)
[2016-11-27] MEDS: MULTIVITAMINS WITH MINERALS, THERAPEUTIC 15 ML UDCUP PEG SCH (08:01)
[2016-11-27] MEDS: PANTOPRAZOLE SODIUM 40 MG/VIAL IVP SCH (08:01)
[2016-11-27 08:05] LABS: ANION GAP 8 mmol/L (8-16); CALCIUM, TOTAL 7.8 mg/dL (8.8-10.5); CARBON DIOXIDE 25 mmol/L (22-29); CHLORIDE 114 mmol/L (98-107); CREATININE 0.98 mg/dL (0.60-1.30); GLOMERULAR FILTR. RATE CALC > 60 mL/min (>60); POTASSIUM 3.2 mmol/L (3.5-5.1); SODIUM SERUM 147 mmol/L (136-145); UREA NITROGEN, BLOOD 24 mg/dL (7-18)
[2016-11-27 11:59] VITALS: BP 134/72
[2016-11-27 15:09] VITALS: BP 138/64
[2016-11-27] MEDS ORDERED: FUROSEMIDE 20 MG/2 ML VIAL IVP ONE (17:00)
[2016-11-27] MEDS ORDERED: POTASSIUM CHLORIDE 20 MEQ ER TABLET PO PRN (17:00)
[2016-11-27] MEDS: POTASSIUM CHL 10 MEQ/WATER 50 ML IV PRN (18:04)
[2016-11-27] MEDS ORDERED: SODIUM CHLORIDE 0.9% 500 ML IV ONE (19:52)
[2016-11-27 20:11] VITALS: BP 142/73
[2016-11-27] MEDS: VANCOMYCIN HCL 1 GM/D5% WATER 200 ML IV SCH (22:03)
[2016-11-27] MEDS: CefTRIAXone 1 GM/DEXTROSE 50 ML IV SCH (23:59)
[2016-11-28 00:30] VITALS: BP 129/72
[2016-11-28] MEDS: POTASSIUM CHL 10 MEQ/WATER 50 ML IV PRN ×2 (00:43→02:02)
[2016-11-28] MEDS: MetroNIDAZOLE 500 MG/NACL 100 ML IV SCH ×2 (03:01→11:43)
[2016-11-28 04:27] VITALS: BP 135/68
[2016-11-28 04:44] LABS: ANION GAP 2 mmol/L (8-16); CALCIUM, TOTAL 7.5 mg/dL (8.8-10.5); CARBON DIOXIDE 26 mmol/L (22-29); CHLORIDE 110 mmol/L (98-107); CREATININE 1.05 mg/dL (0.60-1.30); GLOMERULAR FILTR. RATE CALC > 60 mL/min (>60); POTASSIUM 3.3 mmol/L (3.5-5.1); SODIUM SERUM 138 mmol/L (136-145); UREA NITROGEN, BLOOD 24 mg/dL (7-18)
[2016-11-28] MEDS ORDERED: POTASSIUM CHL 10 MEQ/WATER 50 ML IV PRN (05:30)
[2016-11-28] MEDS ORDERED: POTASSIUM CHLORIDE 10% 40 MEQ/30 ML LIQUID UDCUP GT PRN ×2 (05:30)
[2016-11-28 07:21] VITALS: BP 136/72
[2016-11-28] MEDS ORDERED: AMINO ACIDS/PROTEIN HYDROLYS 30 ML TUBE PO SCH (08:00)
[2016-11-28] MEDS: MULTIVITAMINS WITH MINERALS, THERAPEUTIC 15 ML UDCUP PEG SCH (09:05)
[2016-11-28] MEDS: VANCOMYCIN HCL 1 GM/D5% WATER 200 ML IV SCH (09:05)
[2016-11-28] MEDS: PANTOPRAZOLE SODIUM 40 MG/VIAL IVP SCH (09:05)
[2016-11-28 11:13] VITALS: BP 136/64
[2016-11-28 15:57] VITALS: BP 139/66
[2016-11-28] MEDS ORDERED: DSS100 PO (19:26)
[2016-11-28] MEDS ORDERED: OMEP20 PO (19:26)
[2016-11-28] MEDS ORDERED: AMIN30LI28 PO (19:26)
[2016-11-28] MEDS ORDERED: OXYC-341 PO (19:27)
[2016-11-28] MEDS ORDERED: CEFU250T87 GT (19:29)
[2016-11-28] MEDS ORDERED: CEFUROXIME AXETIL 250 MG TABLET GT SCH (21:00)
[2016-11-28] MEDS ORDERED: CEFUROXIME AXETIL 250 MG TABLET NG SCH (21:00)
== END 2016-11-28 19:30 | DRG 871 ==
LOC: EMS 01:38 → AHU 07:09 → ICU 11:59 → 5N 11-26 03:00
PROVIDERS: ADMIT Internal Medicine; ATTEND Internal Medicine
PROC: 30233N1 Transfusion of Nonautologous Red Blood Cells into Peripheral Vein, Percutaneous Approach (ICD-10-PCS; principal; 2016-11-25)
DX: A41.9 Sepsis, unspecified organism (principal); E43 Unspecified severe protein-calorie malnutrition; L89.153 Pressure ulcer of sacral region, stage 3; L89.623 Pressure ulcer of left heel, stage 3; R64 Cachexia; N39.0 Urinary tract infection, site not specified; D63.8 Anemia in other chronic diseases classified elsewhere; R53.81 Other malaise; E78.00 Pure hypercholesterolemia, unspecified; F03.90 Unspecified dementia, unspecified severity, without behavioral disturbance, psychotic disturbance, mood disturbance, and anxiety; I10 Essential (primary) hypertension; L89.220 Pressure ulcer of left hip, unstageable; E11.621 Type 2 diabetes mellitus with foot ulcer; R65.20 Severe sepsis without septic shock; Z86.73 Personal history of transient ischemic attack (TIA), and cerebral infarction without residual deficits; B96.89 Other specified bacterial agents as the cause of diseases classified elsewhere; Z79.01 Long term (current) use of anticoagulants; Z79.899 Other long term (current) drug therapy; Z68.23 Body mass index [BMI] 23.0-23.9, adult; Z79.84 Long term (current) use of oral hypoglycemic drugs
CPT/HCPCS: 82271; 82962; 83605; 84132; 85014; 85018; 86850; 86900; 86901; 86920; 87040; 87081; 87086; 93005; 94640; 96360; 96365; 96366; 96375; 99285; C9113; J0696; J1650; J1940; J1956; J3370; J3480; J3490; J7030; J7040; J7050; J7060; P9016

== ENCOUNTER 2016-12-02 10:43 | Inpatient (IN) | payer MEDICARE, MEDICAID ==
[~2016-12-02] VITALS: Ht 162.6 cm; Wt 75.1 kg
[~2016-12-02 10:43] MED LIST changes: -ACET-2247 PO; +AMIN30LI28 PO; -ASCO500 PO; -BISA10S PR; -CALC-898 PO; +CEFU250T87 GT; -DONE10TA PO; +DSS100 PO; +ETOMIDATE 2 MG/ML 10 ML VIAL IV ONE; -FAMO20 PO; -LISI-660 PO; -LOVA20 PO; -MEMA5 PO; -MOM30 PO; +OMEP20 PO; +OXYC-341 PO; -SITA1TAB6 PO
[2016-12-02] MEDS ORDERED: 0.9% SODIUM CHLORIDE 10 ML SYRINGE IVP PRN ×2 (11:00→13:00)
[2016-12-02] MEDS ORDERED: INSREG SQ (11:01)
[2016-12-02] MEDS ORDERED: LOVA20 PO (11:01)
[2016-12-02] MEDS ORDERED: DONE10TA PO (11:01)
[2016-12-02] MEDS ORDERED: LISI-660 PO (11:01)
[2016-12-02] MEDS ORDERED: RAPID SEQUENCE KIT [RSI] 1 EACH KIT ONE ×2 (11:07)
[2016-12-02] MEDS ORDERED: SUCCINYLCHOLINE CHLORIDE 20 MG/ML 10 ML VIAL ONE (11:07)
[2016-12-02] MEDS ORDERED: PROPOFOL 1000 MG/ISO-OSM 100 ML IV ONE (11:10)
[2016-12-02 11:17] LABS: BASOPHILS % (AUTO) 0.2 % (0.0-2.0); EOSINOPHILS % (AUTO) 2.1 % (1.0-6.0); HEMATOCRIT 30.7 % (41-53); HEMOGLOBIN 9.4 g/dL (13.5-17.5); LYMPHOCYTES # (AUTO) 5.2 K/uL (1.0-4.8); LYMPHOCYTES % (AUTO) 25.5 % (22.0-44.0); MEAN CORPUSCULAR HEMOGLOBIN 27.7 pg (26.0-34.0); MEAN CORPUSCULAR HGB CONC 30.6 G/dL (31.0-37.0); MEAN CORPUSCULAR VOLUME 91 fL (80-100); MONOCYTES # (AUTO) 0.8 K/uL (0.1-1.0); MONOCYTES % (AUTO) 4.1 % (2.0-9.0); NEUTROPHILS # (AUTO) 13.8 K/uL (1.8-7.7); NEUTROPHILS % (AUTO) 68.1 % (40.0-70.0); PLATELET COUNT (AUTO) 344 K/uL (150-450); RED BLOOD CELL COUNT(AUTO) 3.38 MIL/uL (4.50-5.90); RED CELL DISTRIBUTION WIDTH 17.7 % (11.5-14.5); WHITE BLOOD COUNT (AUTO) 20.3 K/uL (4.5-11.0)
[2016-12-02 11:18] LABS: RBC MORPHOLOGY COMMENT ABNORMAL RBC MORPH
[2016-12-02 11:20] LABS: APPEARANCE,URINE CLOUDY (CLEAR); GLUCOSE, URINE (UA) NEGATIVE (NEGATIVE); KETONES,URINE NEGATIVE (NEGATIVE); LEUKOCYTE ESTERASE ,URINE SMALL (NEGATIVE); OCCULT BLOOD,URINE SMALL (NEGATIVE); PH,URINE 5.5 (5.0-8.0); PROTEIN,URINE POS 1+ (NEGATIVE)
[2016-12-02 11:23] LABS: ADD UA MICROSCOPIC YES
[2016-12-02 11:27] LABS: ANION GAP 7 mmol/L (8-16); CARBON DIOXIDE 29 mmol/L (22-29); CHLORIDE 112 mmol/L (98-107); CREATININE 0.91 mg/dL (0.60-1.30); GLOMERULAR FILTR. RATE CALC > 60 mL/min (>60); POTASSIUM 4.2 mmol/L (3.5-5.1); SODIUM SERUM 148 mmol/L (136-145); UREA NITROGEN, BLOOD 27 mg/dL (7-18)
[2016-12-02 11:34] LABS: SQUAMOUS EPITHELIAL CELL,UR Few /LPF (None Seen)
[2016-12-02 11:34] LABS: ALANINE AMINOTRANSFERASE 21 U/L (12-78); ASPARTATE AMINOTRANSFERASE 26 U/L (15-37); BILIRUBIN,TOTAL 0.2 mg/dL (0.1-1.0); CREATINE KINASE, TOTAL 64 U/L (39-308); TOTAL PROTEIN, SERUM 7.4 g/dL (6.4-8.2)
[2016-12-02 11:36] LABS: B-TYPE NATRIURETIC PEPTIDE 132 pg/mL (0-100); LACTIC ACID 1.7 mmol/L (0.4-2.0)
[2016-12-02 11:40] LABS: ABG A-A DIFF O2 243.9 mmHg (10-20.0); ABG BASE EXCESS -1.8 mmol/L (-2.0-3.0); ABG HCO3 22.5 mmol/L (22.0-26.0); ABG OXYHEMOGLOBIN 98.8 % (94.0-100.0); ABG PCO2 61 mmHg (35-45); ALLEN TEST, BLOOD GAS Positive; TEMPERATURE, FAHRENHEIT, BG 98.6 FAHREN (96.0-98.6)
[2016-12-02] MEDS ORDERED: MIDAZOLAM HCL 100 MG in DEXTROSE 5%-WATER 180 ML IV PRN (11:59)
[2016-12-02 12:11] LABS: PROCALCITONIN (PCT) 0.06 ng/mL (<0.50)
[2016-12-02] MEDS ORDERED: CefTRIAXone 1 GM/DEXTROSE 50 ML IV ONE (12:45)
[2016-12-02] MEDS ORDERED: AZITHROMYCIN 500 MG/NS 250 ML IV ONE (12:45)
[2016-12-02] MEDS ORDERED: SUCCINYLCHOLINE CHLORIDE 20 MG/ML 10 ML VIAL IVP ONE (13:00)
[2016-12-02] MEDS ORDERED: ETOMIDATE 2 MG/ML 10 ML VIAL IVP ONE (13:00)
[2016-12-02] MEDS ORDERED: ACETAMINOPHEN 325 MG TABLET PO PRN (13:00)
[2016-12-02] MEDS ORDERED: SODIUM CHLORIDE 0.9% 1,000 ML IV ONE (13:15)
[2016-12-02] MEDS ORDERED: FentaNYL CITRATE PF 500 MCG in DEXTROSE 5%-WATER 90 ML IV PRN (13:28)
[2016-12-02] MEDS ORDERED: NOREPINEPHRINE 4 MG/D5%-WATER 250 ML IV PRN ×2 (13:29)
[2016-12-02] MEDS: PROPOFOL 1000 MG/ISO-OSM 100 ML IV PRN ×3 (13:50→21:49)
[2016-12-02 14:15] LABS: ABG BASE EXCESS -1.7 mmol/L (-2.0-3.0); ABG HCO3 23.1 mmol/L (22.0-26.0); ABG OXYHEMOGLOBIN 97.1 % (94.0-100.0); ABG PCO2 42 mmHg (35-45); ABG PH 7.368 (7.35-7.450); TEMPERATURE, FAHRENHEIT, BG 98.6 FAHREN (96.0-98.6)
[2016-12-02 14:16] LABS: ALLEN TEST, BLOOD GAS Positive
[2016-12-02] MEDS ORDERED: SODIUM CHLORIDE 0.9% 1,500 ML IV ONE (17:15)
[2016-12-02 18:32] LABS: GLUCOSE,POINT OF CARE 130 MG/DL (70-110)
[2016-12-02 19:12] LABS: BASOPHILS % (AUTO) 0.3 % (0.0-2.0); HEMATOCRIT 27.6 % (41-53); HEMOGLOBIN 8.6 g/dL (13.5-17.5); LYMPHOCYTES # (AUTO) 1.7 K/uL (1.0-4.8); LYMPHOCYTES % (AUTO) 9.9 % (22.0-44.0); MEAN CORPUSCULAR HEMOGLOBIN 28.1 pg (26.0-34.0); MEAN CORPUSCULAR HGB CONC 31.3 G/dL (31.0-37.0); MEAN CORPUSCULAR VOLUME 90 fL (80-100); MONOCYTES # (AUTO) 0.8 K/uL (0.1-1.0); MONOCYTES % (AUTO) 4.5 % (2.0-9.0); NEUTROPHILS # (AUTO) 14.2 K/uL (1.8-7.7); NEUTROPHILS % (AUTO) 83.3 % (40.0-70.0); PLATELET COUNT (AUTO) 262 K/uL (150-450); RED BLOOD CELL COUNT(AUTO) 3.07 MIL/uL (4.50-5.90); RED CELL DISTRIBUTION WIDTH 17.2 % (11.5-14.5)
[2016-12-02 19:15] LABS: RBC MORPHOLOGY COMMENT ABNORMAL RBC MORPH
[2016-12-02 19:29] LABS: ANION GAP 7 mmol/L (8-16); CALCIUM, TOTAL 7.7 mg/dL (8.8-10.5); CARBON DIOXIDE 27 mmol/L (22-29); CHLORIDE 114 mmol/L (98-107); CREATININE 0.91 mg/dL (0.60-1.30); GLOMERULAR FILTR. RATE CALC > 60 mL/min (>60); POTASSIUM 3.9 mmol/L (3.5-5.1); SODIUM SERUM 148 mmol/L (136-145); UREA NITROGEN, BLOOD 27 mg/dL (7-18)
[2016-12-02 19:32] LABS: ALANINE AMINOTRANSFERASE 19 U/L (12-78); ALBUMIN 1.9 g/dL (3.4-5.0); ASPARTATE AMINOTRANSFERASE 27 U/L (15-37); BILIRUBIN,TOTAL 0.2 mg/dL (0.1-1.0); TOTAL PROTEIN, SERUM 6.8 g/dL (6.4-8.2)
[2016-12-02 19:37] LABS: LACTIC ACID 1.5 mmol/L (0.4-2.0)
[2016-12-02 20:50] VITALS: BP 112/83
[2016-12-03] VITALS (10 sets, daily range): BP systolic 91–141; BP diastolic 47–70
[2016-12-03] MEDS ORDERED: DEXTROSE 50%-WATER 25 GM/50 ML SYRINGE IVP PRN (02:45)
[2016-12-03] MEDS ORDERED: ACETAMINOPHEN 325 MG TABLET PO PRN (02:45)
[2016-12-03] MEDS ORDERED: ALBUTEROL SULFATE 2.5 MG/0.5 ML NEB SOLUTION NEB PRN (02:45)
[2016-12-03] MEDS ORDERED: IPRATROPIUM BROMIDE 0.5 MG/2.5 ML NEB SOLUTION NEB PRN (02:45)
[2016-12-03] MEDS ORDERED: VANCOMYCIN HCL 1.5 GM in DEXTROSE 5%-WATER 250 ML IV ONE (03:00)
[2016-12-03] MEDS ORDERED: SODIUM CHLORIDE 0.9% 0 ML IV ONE (03:31)
[2016-12-03] MEDS: PROPOFOL 1000 MG/ISO-OSM 100 ML IV PRN ×3 (03:43→17:14)
[2016-12-03] MEDS ORDERED: PNEUMOCOCCAL VACCINE POLYVALENT 0.5 ML VIAL [PPSV23] IM ONE (04:45)
[2016-12-03] MEDS: INSULIN REGULAR, HUMAN 100 UNITS/ML SQ PRN ×2 (05:01→23:19)
[2016-12-03] MEDS: PIPERACILLIN/TAZO 3.375 GM/D5W 50 ML IV SCH ×4 (05:27→23:23)
[2016-12-03 05:31] LABS: BASOPHILS % (AUTO) 0.2 % (0.0-2.0); HEMOGLOBIN 8.3 g/dL (13.5-17.5); LYMPHOCYTES # (AUTO) 1.6 K/uL (1.0-4.8); LYMPHOCYTES % (AUTO) 12.4 % (22.0-44.0); MEAN CORPUSCULAR HEMOGLOBIN 27.8 pg (26.0-34.0); MEAN CORPUSCULAR HGB CONC 30.9 G/dL (31.0-37.0); MEAN CORPUSCULAR VOLUME 90 fL (80-100); MONOCYTES # (AUTO) 0.6 K/uL (0.1-1.0); MONOCYTES % (AUTO) 4.7 % (2.0-9.0); NEUTROPHILS % (AUTO) 78.7 % (40.0-70.0); PLATELET COUNT (AUTO) 235 K/uL (150-450); RED CELL DISTRIBUTION WIDTH 17.5 % (11.5-14.5); WHITE BLOOD COUNT (AUTO) 12.7 K/uL (4.5-11.0)
[2016-12-03 05:40] LABS: ANION GAP 7 mmol/L (8-16); CALCIUM, TOTAL 7.6 mg/dL (8.8-10.5); CARBON DIOXIDE 27 mmol/L (22-29); CHLORIDE 112 mmol/L (98-107); CREATININE 0.79 mg/dL (0.60-1.30); GLOMERULAR FILTR. RATE CALC > 60 mL/min (>60); POTASSIUM 3.7 mmol/L (3.5-5.1); SODIUM SERUM 146 mmol/L (136-145); UREA NITROGEN, BLOOD 24 mg/dL (7-18)
[2016-12-03 07:02] LABS: GLUCOSE,POINT OF CARE 113 MG/DL (70-110)
[2016-12-03] MEDS: PANTOPRAZOLE SODIUM 40 MG/VIAL IVP SCH (08:33)
[2016-12-03] MEDS ORDERED: SODIUM CHLORIDE 0.9% 250 ML IV ONE (14:38)
[2016-12-03] MEDS: SODIUM CHLORIDE 0.45% 1,000 ML IV SCH (14:52)
[2016-12-03 16:17] LABS: GLUCOSE,POINT OF CARE 98 MG/DL (70-110)
[2016-12-03] MEDS: NOREPINEPHRINE 4 MG/D5%-WATER 250 ML IV PRN (20:08)
[2016-12-03] MEDS: MORPHINE SULFATE 2 MG/ML SYRINGE IVP PRN (21:15)
[2016-12-04] VITALS (8 sets, daily range): BP systolic 97–133; BP diastolic 55–70
[2016-12-04] MEDS ORDERED: SODIUM CHLORIDE 0.9% 0 ML IV ONE (04:56)
[2016-12-04] MEDS: SODIUM CHLORIDE 0.45% 1,000 ML IV SCH ×2 (05:01→17:50)
[2016-12-04] MEDS: INSULIN REGULAR, HUMAN 100 UNITS/ML SQ PRN ×4 (05:06→23:24)
[2016-12-04] MEDS: PIPERACILLIN/TAZO 3.375 GM/D5W 50 ML IV SCH ×4 (05:07→23:26)
[2016-12-04 05:42] LABS: EOSINOPHILS % (AUTO) 4.3 % (1.0-6.0); HEMATOCRIT 25.9 % (41-53); HEMOGLOBIN 8.1 g/dL (13.5-17.5); LYMPHOCYTES # (AUTO) 0.7 K/uL (1.0-4.8); LYMPHOCYTES % (AUTO) 3.9 % (22.0-44.0); MEAN CORPUSCULAR HEMOGLOBIN 27.7 pg (26.0-34.0); MEAN CORPUSCULAR HGB CONC 31.1 G/dL (31.0-37.0); MEAN CORPUSCULAR VOLUME 89 fL (80-100); MONOCYTES # (AUTO) 0.2 K/uL (0.1-1.0); MONOCYTES % (AUTO) 1.4 % (2.0-9.0); NEUTROPHILS # (AUTO) 15.5 K/uL (1.8-7.7); PLATELET COUNT (AUTO) 281 K/uL (150-450); RED BLOOD CELL COUNT(AUTO) 2.91 MIL/uL (4.50-5.90); RED CELL DISTRIBUTION WIDTH 17.9 % (11.5-14.5); WHITE BLOOD COUNT (AUTO) 17.2 K/uL (4.5-11.0)
[2016-12-04 05:49] LABS: NEUTROPHILS % (AUTO) 90.4 % (40.0-70.0)
[2016-12-04 05:59] LABS: CALCIUM, TOTAL 7.5 mg/dL (8.8-10.5); CREATININE 1.23 mg/dL (0.60-1.30); POTASSIUM 3.6 mmol/L (3.5-5.1)
[2016-12-04] MEDS: PANTOPRAZOLE SODIUM 40 MG/VIAL IVP SCH (07:58)
[2016-12-04] MEDS: MULTIVITAMINS WITH MINERALS, THERAPEUTIC 15 ML UDCUP PEG SCH (07:58)
[2016-12-04] MEDS ORDERED: VANCOMYCIN HCL 1.5 GM in DEXTROSE 5%-WATER 250 ML IV SCH (08:00)
[2016-12-04 09:52] LABS: GLUCOSE,POINT OF CARE 90 MG/DL (70-110)
[2016-12-04 10:26] LABS: ABG A-A DIFF O2 103.4 mmHg (10-20.0); ABG BASE EXCESS -2.2 mmol/L (-2.0-3.0); ABG HCO3 23.2 mmol/L (22.0-26.0); ABG OXYHEMOGLOBIN 97.7 % (94.0-100.0); ABG PCO2 27 mmHg (35-45); ABG PH 7.508 (7.35-7.450); TEMPERATURE, FAHRENHEIT, BG 98.6 FAHREN (96.0-98.6)
[2016-12-04 10:27] LABS: ALLEN TEST, BLOOD GAS Positive
[2016-12-04] MEDS ORDERED: 0.9% SODIUM CHLORIDE 5 ML NEB SOLUTION NEB ONE (12:38)
[2016-12-04] MEDS: MORPHINE SULFATE 2 MG/ML SYRINGE IVP PRN (13:05)
[2016-12-04] MEDS: NOREPINEPHRINE 4 MG/D5%-WATER 250 ML IV PRN (19:33)
[2016-12-05] VITALS (8 sets, daily range): BP systolic 103–163; BP diastolic 56–82
[2016-12-05] MEDS: MORPHINE SULFATE 2 MG/ML SYRINGE IVP PRN (02:03)
[2016-12-05] MEDS: INSULIN REGULAR, HUMAN 100 UNITS/ML SQ PRN ×3 (05:08→23:27)
[2016-12-05] MEDS: PIPERACILLIN/TAZO 3.375 GM/D5W 50 ML IV SCH ×4 (05:26→23:16)
[2016-12-05 05:50] LABS: ANION GAP 7 mmol/L (8-16); CALCIUM, TOTAL 7.2 mg/dL (8.8-10.5); CARBON DIOXIDE 26 mmol/L (22-29); CHLORIDE 107 mmol/L (98-107); CREATININE 1.08 mg/dL (0.60-1.30); GLOMERULAR FILTR. RATE CALC > 60 mL/min (>60); POTASSIUM 3.4 mmol/L (3.5-5.1); SODIUM SERUM 140 mmol/L (136-145); UREA NITROGEN, BLOOD 23 mg/dL (7-18)
[2016-12-05 06:21] LABS: B-TYPE NATRIURETIC PEPTIDE 34 pg/mL (0-100)
[2016-12-05] MEDS: SODIUM CHLORIDE 0.45% 1,000 ML IV SCH ×2 (06:38→20:12)
[2016-12-05 06:47] LABS: BASOPHILS % (AUTO) 0.2 % (0.0-2.0); EOSINOPHILS % (AUTO) 8.3 % (1.0-6.0); HEMATOCRIT 21.7 % (41-53); LYMPHOCYTES # (AUTO) 1.1 K/uL (1.0-4.8); LYMPHOCYTES % (AUTO) 15.1 % (22.0-44.0); MEAN CORPUSCULAR HEMOGLOBIN 27.5 pg (26.0-34.0); MEAN CORPUSCULAR HGB CONC 30.9 G/dL (31.0-37.0); MEAN CORPUSCULAR VOLUME 89 fL (80-100); MONOCYTES # (AUTO) 0.3 K/uL (0.1-1.0); MONOCYTES % (AUTO) 4.3 % (2.0-9.0); NEUTROPHILS # (AUTO) 5.5 K/uL (1.8-7.7); NEUTROPHILS % (AUTO) 72.1 % (40.0-70.0); PLATELET COUNT (AUTO) 238 K/uL (150-450); RED BLOOD CELL COUNT(AUTO) 2.44 MIL/uL (4.50-5.90); RED CELL DISTRIBUTION WIDTH 17.6 % (11.5-14.5); WHITE BLOOD COUNT (AUTO) 7.6 K/uL (4.5-11.0)
[2016-12-05 06:53] LABS: HEMOGLOBIN 6.7 g/dL (13.5-17.5)
[2016-12-05 07:54] LABS: RBC MORPHOLOGY COMMENT ABNORMAL RBC MORPH
[2016-12-05] MEDS: PANTOPRAZOLE SODIUM 40 MG/VIAL IVP SCH (09:06)
[2016-12-05] MEDS: VANCOMYCIN HCL 1.25 GM in DEXTROSE 5%-WATER 250 ML IV SCH (09:06)
[2016-12-05] MEDS: MULTIVITAMINS WITH MINERALS, THERAPEUTIC 15 ML UDCUP PEG SCH (09:06)
[2016-12-05 10:54] LABS: GLUCOSE,POINT OF CARE 112 MG/DL (70-110)
[2016-12-05 10:54] LABS: GLUCOSE COMMENT 1 Received Meds; GLUCOSE,POINT OF CARE 151 MG/DL (70-110)
[2016-12-05 10:59] LABS: GLUCOSE COMMENT 1 Received Meds; GLUCOSE,POINT OF CARE 156 MG/DL (70-110)
[2016-12-05 10:59] LABS: GLUCOSE COMMENT 1 Received Meds; GLUCOSE,POINT OF CARE 187 MG/DL (70-110)
[2016-12-05 10:59] LABS: GLUCOSE COMMENT 1 Received Meds; GLUCOSE,POINT OF CARE 159 MG/DL (70-110)
[2016-12-05 11:03] LABS: GLUCOSE,POINT OF CARE 137 MG/DL (70-110)
[2016-12-05] MEDS ORDERED: SODIUM CHLORIDE 0.9% 250 ML IV ONE (11:44)
[2016-12-05 12:12] LABS: ABG A-A DIFF O2 108.1 mmHg (10-20.0); ABG BASE EXCESS 0.1 mmol/L (-2.0-3.0); ABG HCO3 24.7 mmol/L (22.0-26.0); ABG OXYHEMOGLOBIN 97.3 % (94.0-100.0); ABG PCO2 34 mmHg (35-45); TEMPERATURE, FAHRENHEIT, BG 97.8 FAHREN (96.0-98.6)
[2016-12-05 12:13] LABS: ALLEN TEST, BLOOD GAS Positive
[2016-12-05 14:57] LABS: GLUCOSE,POINT OF CARE 185 MG/DL (70-110)
[2016-12-05 19:26] LABS: BASOPHILS % (AUTO) 0.5 % (0.0-2.0); EOSINOPHILS % (AUTO) 7.5 % (1.0-6.0); HEMATOCRIT 29.9 % (41-53); HEMOGLOBIN 9.4 g/dL (13.5-17.5); LYMPHOCYTES % (AUTO) 13.1 % (22.0-44.0); MEAN CORPUSCULAR HEMOGLOBIN 27.2 pg (26.0-34.0); MEAN CORPUSCULAR HGB CONC 31.2 G/dL (31.0-37.0); MEAN CORPUSCULAR VOLUME 87 fL (80-100); MONOCYTES # (AUTO) 0.3 K/uL (0.1-1.0); MONOCYTES % (AUTO) 4.1 % (2.0-9.0); NEUTROPHILS # (AUTO) 5.9 K/uL (1.8-7.7); NEUTROPHILS % (AUTO) 74.8 % (40.0-70.0); PLATELET COUNT (AUTO) 258 K/uL (150-450); RED BLOOD CELL COUNT(AUTO) 3.44 MIL/uL (4.50-5.90); RED CELL DISTRIBUTION WIDTH 19.5 % (11.5-14.5); WHITE BLOOD COUNT (AUTO) 7.9 K/uL (4.5-11.0)
[2016-12-05 20:47] LABS: RBC MORPHOLOGY COMMENT ABNORMAL RBC MORPH
[2016-12-05 23:27] LABS: GLUCOSE COMMENT 1 Received Meds; GLUCOSE,POINT OF CARE 187 MG/DL (70-110)
[2016-12-05 23:27] LABS: GLUCOSE COMMENT 1 Received Meds; GLUCOSE,POINT OF CARE 178 MG/DL (70-110)
[2016-12-06] VITALS: BP 106/54
[2016-12-06 04:00] VITALS: BP 122/63
[2016-12-06 05:17] LABS: GLUCOSE COMMENT 1 Received Meds; GLUCOSE,POINT OF CARE 179 MG/DL (70-110)
[2016-12-06] MEDS: PIPERACILLIN/TAZO 3.375 GM/D5W 50 ML IV SCH ×3 (05:25→17:48)
[2016-12-06] MEDS: PROPOFOL 1000 MG/ISO-OSM 100 ML IV PRN (05:28)
[2016-12-06 05:56] LABS: ANION GAP 7 mmol/L (8-16); CALCIUM, TOTAL 7.4 mg/dL (8.8-10.5); CARBON DIOXIDE 26 mmol/L (22-29); CHLORIDE 106 mmol/L (98-107); GLOMERULAR FILTR. RATE CALC > 60 mL/min (>60); POTASSIUM 3.5 mmol/L (3.5-5.1); SODIUM SERUM 139 mmol/L (136-145); UREA NITROGEN, BLOOD 18 mg/dL (7-18)
[2016-12-06] MEDS: INSULIN REGULAR, HUMAN 100 UNITS/ML SQ PRN ×3 (06:06→17:49)
[2016-12-06 06:07] LABS: BASOPHILS % (AUTO) 0.2 % (0.0-2.0); EOSINOPHILS % (AUTO) 8.7 % (1.0-6.0); HEMATOCRIT 27.6 % (41-53); HEMOGLOBIN 8.7 g/dL (13.5-17.5); LYMPHOCYTES % (AUTO) 15.7 % (22.0-44.0); MEAN CORPUSCULAR HEMOGLOBIN 27.4 pg (26.0-34.0); MEAN CORPUSCULAR HGB CONC 31.3 G/dL (31.0-37.0); MEAN CORPUSCULAR VOLUME 87 fL (80-100); MONOCYTES # (AUTO) 0.4 K/uL (0.1-1.0); MONOCYTES % (AUTO) 6.2 % (2.0-9.0); NEUTROPHILS # (AUTO) 4.6 K/uL (1.8-7.7); NEUTROPHILS % (AUTO) 69.2 % (40.0-70.0); PLATELET COUNT (AUTO) 251 K/uL (150-450); RED BLOOD CELL COUNT(AUTO) 3.16 MIL/uL (4.50-5.90); RED CELL DISTRIBUTION WIDTH 19.1 % (11.5-14.5); WHITE BLOOD COUNT (AUTO) 6.6 K/uL (4.5-11.0)
[2016-12-06 06:29] LABS: B-TYPE NATRIURETIC PEPTIDE 131 pg/mL (0-100)
[2016-12-06 08:00] VITALS: BP 111/58
[2016-12-06] MEDS: VANCOMYCIN HCL 1.25 GM in DEXTROSE 5%-WATER 250 ML IV SCH (08:23)
[2016-12-06] MEDS: PANTOPRAZOLE SODIUM 40 MG/VIAL IVP SCH (08:24)
[2016-12-06] MEDS: MULTIVITAMINS WITH MINERALS, THERAPEUTIC 15 ML UDCUP PEG SCH (08:24)
[2016-12-06] MEDS: AMINO ACIDS/PROTEIN HYDROLYS 30 ML TUBE PO SCH (08:25)
[2016-12-06] MEDS: SODIUM CHLORIDE 0.45% 1,000 ML IV SCH ×2 (08:27→23:20)
[2016-12-06 08:59] LABS: RBC MORPHOLOGY COMMENT ABNORMAL RBC MORPH
[2016-12-06 10:23] LABS: ABG A-A DIFF O2 78.1 mmHg (10-20.0); ABG BASE EXCESS 0.7 mmol/L (-2.0-3.0); ABG HCO3 25.5 mmol/L (22.0-26.0); ABG PCO2 34 mmHg (35-45); ABG PH 7.476 (7.35-7.450); TEMPERATURE, FAHRENHEIT, BG 98.1 FAHREN (96.0-98.6)
[2016-12-06 10:24] LABS: ALLEN TEST, BLOOD GAS Positive
[2016-12-06 12:00] VITALS: BP 136/77
[2016-12-06 12:41] LABS: ABG A-A DIFF O2 101.7 mmHg (10-20.0); ABG HCO3 24.8 mmol/L (22.0-26.0); ABG OXYHEMOGLOBIN 98.2 % (94.0-100.0); ABG PCO2 33 mmHg (35-45); ABG PH 7.476 (7.35-7.450); ALLEN TEST, BLOOD GAS Positive; TEMPERATURE, FAHRENHEIT, BG 98.2 FAHREN (96.0-98.6)
[2016-12-06 16:00] VITALS: BP 132/65
[2016-12-06 20:00] VITALS: BP 135/66
[2016-12-06] MEDS: DOCUSATE SODIUM 100 MG CAPSULE PO SCH (21:02)
[2016-12-07] VITALS: BP 144/76
[2016-12-07] MEDS: AMPICILLIN SODIUM/SULBACTAM NA 3 GM in SODIUM CHLORIDE 0.9% 100 ML IV SCH ×5 (00:05→23:45)
[2016-12-07] MEDS: INSULIN REGULAR, HUMAN 100 UNITS/ML SQ PRN ×4 (00:27→23:53)
[2016-12-07 04:00] VITALS: BP 136/66
[2016-12-07 04:57] LABS: GLUCOSE,POINT OF CARE 190 MG/DL (70-110)
[2016-12-07 05:46] LABS: ANION GAP 8 mmol/L (8-16); CALCIUM, TOTAL 7.4 mg/dL (8.8-10.5); CARBON DIOXIDE 26 mmol/L (22-29); CHLORIDE 104 mmol/L (98-107); CREATININE 0.81 mg/dL (0.60-1.30); GLOMERULAR FILTR. RATE CALC > 60 mL/min (>60); POTASSIUM 3.5 mmol/L (3.5-5.1); SODIUM SERUM 138 mmol/L (136-145); UREA NITROGEN, BLOOD 18 mg/dL (7-18)
[2016-12-07 07:37] LABS: GLUCOSE,POINT OF CARE 189 MG/DL (70-110)
[2016-12-07 07:42] LABS: GLUCOSE COMMENT 1 Received Meds; GLUCOSE,POINT OF CARE 174 MG/DL (70-110)
[2016-12-07 07:42] LABS: GLUCOSE,POINT OF CARE 134 MG/DL (70-110)
[2016-12-07 08:00] VITALS: BP 143/67
[2016-12-07] MEDS ORDERED: SODIUM CHLORIDE 0.9% 250 ML IV ONE (08:39)
[2016-12-07] MEDS: DOCUSATE SODIUM 100 MG CAPSULE PO SCH ×2 (08:40→21:00)
[2016-12-07] MEDS: PANTOPRAZOLE SODIUM 40 MG/VIAL IVP SCH (08:40)
[2016-12-07] MEDS: VANCOMYCIN HCL 1.5 GM in DEXTROSE 5%-WATER 250 ML IV SCH (08:40)
[2016-12-07] MEDS: MULTIVITAMINS WITH MINERALS, THERAPEUTIC 15 ML UDCUP PEG SCH (08:40)
[2016-12-07] MEDS: AMINO ACIDS/PROTEIN HYDROLYS 30 ML TUBE PO SCH (08:41)
[2016-12-07 12:00] VITALS: BP 141/73
[2016-12-07] MEDS: SODIUM CHLORIDE 0.45% 1,000 ML IV SCH (12:07)
[2016-12-07 13:22] LABS: GLUCOSE COMMENT 1 Received Meds; GLUCOSE,POINT OF CARE 229 MG/DL (70-110)
[2016-12-07 16:00] VITALS: BP 149/83
[2016-12-07 20:00] VITALS: BP 133/71
[2016-12-08] VITALS: BP 145/73
[2016-12-08 04:00] VITALS: BP 142/60
[2016-12-08] MEDS: INSULIN REGULAR, HUMAN 100 UNITS/ML SQ PRN ×3 (05:15→23:22)
[2016-12-08 05:17] LABS: GLUCOSE COMMENT 1 Received Meds; GLUCOSE,POINT OF CARE 183 MG/DL (70-110)
[2016-12-08 05:43] LABS: ANION GAP 7 mmol/L (8-16); CALCIUM, TOTAL 7.6 mg/dL (8.8-10.5); CARBON DIOXIDE 27 mmol/L (22-29); CHLORIDE 107 mmol/L (98-107); CREATININE 0.77 mg/dL (0.60-1.30); GLOMERULAR FILTR. RATE CALC > 60 mL/min (>60); POTASSIUM 3.4 mmol/L (3.5-5.1); SODIUM SERUM 141 mmol/L (136-145); UREA NITROGEN, BLOOD 18 mg/dL (7-18)
[2016-12-08] MEDS: AMPICILLIN SODIUM/SULBACTAM NA 3 GM in SODIUM CHLORIDE 0.9% 100 ML IV SCH ×4 (06:17→23:09)
[2016-12-08 08:00] VITALS: BP 132/61
[2016-12-08 08:07] LABS: GLUCOSE COMMENT 1 Received Meds; GLUCOSE,POINT OF CARE 176 MG/DL (70-110)
[2016-12-08] MEDS: MULTIVITAMINS WITH MINERALS, THERAPEUTIC 15 ML UDCUP PEG SCH (08:08)
[2016-12-08] MEDS: PANTOPRAZOLE SODIUM 40 MG/VIAL IVP SCH (08:08)
[2016-12-08] MEDS: VANCOMYCIN HCL 1.5 GM in DEXTROSE 5%-WATER 250 ML IV SCH (08:08)
[2016-12-08] MEDS: AMINO ACIDS/PROTEIN HYDROLYS 30 ML TUBE PO SCH (08:09)
[2016-12-08 08:11] LABS: GLUCOSE COMMENT 1 Received Meds; GLUCOSE,POINT OF CARE 159 MG/DL (70-110)
[2016-12-08] MEDS: DOCUSATE SODIUM 100 MG CAPSULE PO SCH ×2 (09:00→20:13)
[2016-12-08] MEDS ORDERED: ALBUMIN HUMAN 25%-12.5GM/50ML 50 ML ONE ×2 (10:14→10:15)
[2016-12-08 12:00] VITALS: BP 149/73
[2016-12-08] MEDS: SODIUM CHLORIDE 0.45% 1,000 ML IV SCH (12:51)
[2016-12-08 16:00] VITALS: BP 146/74
[2016-12-08 16:07] LABS: GLUCOSE COMMENT 1 Received Meds; GLUCOSE,POINT OF CARE 178 MG/DL (70-110)
[2016-12-08 16:50] LABS: ABG A-A DIFF O2 69.3 mmHg (10-20.0); ABG BASE EXCESS 0.9 mmol/L (-2.0-3.0); ABG HCO3 25.6 mmol/L (22.0-26.0); ABG OXYHEMOGLOBIN 97.7 % (94.0-100.0); ABG PCO2 32 mmHg (35-45); ABG PH 7.495 (7.35-7.450); TEMPERATURE, FAHRENHEIT, BG 98.4 FAHREN (96.0-98.6)
[2016-12-08 16:51] LABS: ALLEN TEST, BLOOD GAS Positive
[2016-12-08 19:00] LABS: ABG A-A DIFF O2 90.9 mmHg (10-20.0); ABG BASE EXCESS 2.5 mmol/L (-2.0-3.0); ABG HCO3 26.7 mmol/L (22.0-26.0); ABG OXYHEMOGLOBIN 95.8 % (94.0-100.0); ABG PCO2 36 mmHg (35-45); ABG PH 7.478 (7.35-7.450); ALLEN TEST, BLOOD GAS Positive; TEMPERATURE, FAHRENHEIT, BG 98.4 FAHREN (96.0-98.6)
[2016-12-08 20:00] VITALS: BP 146/71
[2016-12-08 20:51] LABS: GLUCOSE,POINT OF CARE 131 MG/DL (70-110)
[2016-12-08 23:26] LABS: GLUCOSE COMMENT 1 Received Meds; GLUCOSE,POINT OF CARE 184 MG/DL (70-110)
[2016-12-09] VITALS (7 sets, daily range): BP systolic 130–157; BP diastolic 67–81
[2016-12-09] MEDS: INSULIN REGULAR, HUMAN 100 UNITS/ML SQ PRN ×3 (04:55→18:13)
[2016-12-09 05:39] LABS: ANION GAP 7 mmol/L (8-16); CARBON DIOXIDE 27 mmol/L (22-29); CHLORIDE 108 mmol/L (98-107); CREATININE 0.74 mg/dL (0.60-1.30); GLOMERULAR FILTR. RATE CALC > 60 mL/min (>60); POTASSIUM 3.7 mmol/L (3.5-5.1); SODIUM SERUM 142 mmol/L (136-145); UREA NITROGEN, BLOOD 17 mg/dL (7-18)
[2016-12-09] MEDS: AMPICILLIN SODIUM/SULBACTAM NA 3 GM in SODIUM CHLORIDE 0.9% 100 ML IV SCH ×3 (05:50→18:12)
[2016-12-09 06:41] LABS: GLUCOSE,POINT OF CARE 136 MG/DL (70-110)
[2016-12-09] MEDS: VANCOMYCIN HCL 1.5 GM in DEXTROSE 5%-WATER 250 ML IV SCH (08:38)
[2016-12-09] MEDS: MULTIVITAMINS WITH MINERALS, THERAPEUTIC 15 ML UDCUP PEG SCH (08:38)
[2016-12-09] MEDS: AMINO ACIDS/PROTEIN HYDROLYS 30 ML TUBE PO SCH (08:38)
[2016-12-09] MEDS: DOCUSATE SODIUM 100 MG CAPSULE PO SCH ×2 (08:38→20:09)
[2016-12-09] MEDS: PANTOPRAZOLE SODIUM 40 MG/VIAL IVP SCH (08:38)
[2016-12-09 12:02] LABS: GLUCOSE COMMENT 1 Received Meds; GLUCOSE,POINT OF CARE 192 MG/DL (70-110)
[2016-12-09 19:07] LABS: GLUCOSE COMMENT 1 Received Meds; GLUCOSE,POINT OF CARE 154 MG/DL (70-110)
[2016-12-10] VITALS: BP 141/77
[2016-12-10] MEDS: AMPICILLIN SODIUM/SULBACTAM NA 3 GM in SODIUM CHLORIDE 0.9% 100 ML IV SCH ×4 (00:44→17:31)
[2016-12-10] MEDS ORDERED: SODIUM CHLORIDE 0.9% 250 ML IV ONE (00:47)
[2016-12-10 04:36] VITALS: BP 149/83
[2016-12-10] MEDS: INSULIN REGULAR, HUMAN 100 UNITS/ML SQ PRN ×3 (05:50→17:32)
[2016-12-10 05:53] LABS: BASOPHILS % (AUTO) 0.5 % (0.0-2.0); EOSINOPHILS % (AUTO) 9.3 % (1.0-6.0); HEMATOCRIT 32.4 % (41-53); HEMOGLOBIN 10.2 g/dL (13.5-17.5); LYMPHOCYTES # (AUTO) 1.7 K/uL (1.0-4.8); LYMPHOCYTES % (AUTO) 29.5 % (22.0-44.0); MEAN CORPUSCULAR HEMOGLOBIN 27.5 pg (26.0-34.0); MEAN CORPUSCULAR HGB CONC 31.6 G/dL (31.0-37.0); MEAN CORPUSCULAR VOLUME 87 fL (80-100); MONOCYTES # (AUTO) 0.4 K/uL (0.1-1.0); MONOCYTES % (AUTO) 7.2 % (2.0-9.0); NEUTROPHILS # (AUTO) 3.1 K/uL (1.8-7.7); NEUTROPHILS % (AUTO) 53.5 % (40.0-70.0); PLATELET COUNT (AUTO) 282 K/uL (150-450); RED BLOOD CELL COUNT(AUTO) 3.72 MIL/uL (4.50-5.90); RED CELL DISTRIBUTION WIDTH 18.9 % (11.5-14.5); WHITE BLOOD COUNT (AUTO) 5.8 K/uL (4.5-11.0)
[2016-12-10 07:11] VITALS: BP 140/82
[2016-12-10 07:37] LABS: ANION GAP 8 mmol/L (8-16); CARBON DIOXIDE 26 mmol/L (22-29); CHLORIDE 107 mmol/L (98-107); CREATININE 0.85 mg/dL (0.60-1.30); GLOMERULAR FILTR. RATE CALC > 60 mL/min (>60); POTASSIUM 3.4 mmol/L (3.5-5.1); SODIUM SERUM 141 mmol/L (136-145); UREA NITROGEN, BLOOD 18 mg/dL (7-18)
[2016-12-10] MEDS: DOCUSATE SODIUM 100 MG CAPSULE PO SCH ×2 (09:00→19:54)
[2016-12-10] MEDS: PANTOPRAZOLE SODIUM 40 MG/VIAL IVP SCH (09:07)
[2016-12-10] MEDS: AMINO ACIDS/PROTEIN HYDROLYS 30 ML TUBE PO SCH (09:08)
[2016-12-10] MEDS: MULTIVITAMINS WITH MINERALS, THERAPEUTIC 15 ML UDCUP PEG SCH (10:55)
[2016-12-10 11:29] VITALS: BP 154/74
[2016-12-10 15:29] VITALS: BP 145/72
[2016-12-10] MEDS ORDERED: POTASSIUM CHL 10 MEQ/WATER 50 ML IV PRN (16:15)
[2016-12-10] MEDS ORDERED: POTASSIUM CHLORIDE 20 MEQ ER TABLET PO PRN (16:15)
[2016-12-10] MEDS ORDERED: POTASSIUM CHLORIDE 10% 40 MEQ/30 ML LIQUID UDCUP PEG ONE (16:30)
[2016-12-10] MEDS ORDERED: POTASSIUM CHLORIDE 10% 40 MEQ/30 ML LIQUID UDCUP PEG PRN (19:15)
[2016-12-10 19:53] VITALS: BP 138/67
[2016-12-11] VITALS (7 sets, daily range): BP systolic 134–159; BP diastolic 70–89
[2016-12-11] MEDS: AMPICILLIN SODIUM/SULBACTAM NA 3 GM in SODIUM CHLORIDE 0.9% 100 ML IV SCH ×4 (00:38→17:20)
[2016-12-11] MEDS: INSULIN REGULAR, HUMAN 100 UNITS/ML SQ PRN ×3 (00:52→17:29)
[2016-12-11] MEDS: AMINO ACIDS/PROTEIN HYDROLYS 30 ML TUBE PO SCH (09:06)
[2016-12-11] MEDS: PANTOPRAZOLE SODIUM 40 MG/VIAL IVP SCH (09:08)
[2016-12-11] MEDS: MULTIVITAMINS WITH MINERALS, THERAPEUTIC 15 ML UDCUP PEG SCH (09:08)
[2016-12-11] MEDS: DOCUSATE SODIUM 100 MG CAPSULE PO SCH ×2 (09:09→20:35)
[2016-12-11 13:02] LABS: GLUCOSE COMMENT 1 Received Meds; GLUCOSE,POINT OF CARE 165 MG/DL (70-110)
[2016-12-11 13:07] LABS: GLUCOSE COMMENT 1 Received Meds; GLUCOSE,POINT OF CARE 156 MG/DL (70-110)
[2016-12-11 18:22] LABS: GLUCOSE,POINT OF CARE 123 MG/DL (70-110)
[2016-12-11 18:22] LABS: GLUCOSE COMMENT 1 Received Meds; GLUCOSE,POINT OF CARE 144 MG/DL (70-110)
[2016-12-12] MEDS: AMPICILLIN SODIUM/SULBACTAM NA 3 GM in SODIUM CHLORIDE 0.9% 100 ML IV SCH ×5 (00:03→23:40)
[2016-12-12] MEDS: INSULIN REGULAR, HUMAN 100 UNITS/ML SQ PRN ×3 (00:05→17:46)
[2016-12-12 04:30] VITALS: BP 143/68
[2016-12-12 07:54] VITALS: BP 137/62
[2016-12-12] MEDS: PANTOPRAZOLE SODIUM 40 MG/VIAL IVP SCH (08:32)
[2016-12-12] MEDS: MULTIVITAMINS WITH MINERALS, THERAPEUTIC 15 ML UDCUP PEG SCH (08:32)
[2016-12-12] MEDS: DOCUSATE SODIUM 100 MG CAPSULE PO SCH ×2 (08:32→20:23)
[2016-12-12] MEDS: AMINO ACIDS/PROTEIN HYDROLYS 30 ML TUBE PO SCH (08:34)
[2016-12-12 11:11] VITALS: BP 134/76
[2016-12-12 16:04] VITALS: BP 146/78
[2016-12-12 19:42] VITALS: BP 130/68
[2016-12-13] VITALS: BP 144/68
[2016-12-13 04:00] VITALS: BP 129/61
[2016-12-13] MEDS: INSULIN REGULAR, HUMAN 100 UNITS/ML SQ PRN (06:31)
[2016-12-13 07:28] VITALS: BP 126/70
[2016-12-13] MEDS: PANTOPRAZOLE SODIUM 40 MG/VIAL IVP SCH (09:02)
[2016-12-13] MEDS: MULTIVITAMINS WITH MINERALS, THERAPEUTIC 15 ML UDCUP PEG SCH (09:03)
[2016-12-13] MEDS: DOCUSATE SODIUM 100 MG CAPSULE PO SCH (09:03)
[2016-12-13] MEDS: AMINO ACIDS/PROTEIN HYDROLYS 30 ML TUBE PO SCH (09:07)
[2016-12-13 11:19] VITALS: BP 132/77
[2016-12-13] MEDS ORDERED: AMINO ACIDS/PROTEIN HYDROLYS 30 ML TUBE PO SCH (11:30)
[2016-12-13] MEDS ORDERED: OxyCODONE HCL/ACETAMINOPHEN 5-325 MG TABLET PO PRN (11:30)
[2016-12-13] MEDS ORDERED: INSULIN REGULAR, HUMAN 100 UNITS/ML SQ PRN (11:30)
[2016-12-13] MEDS ORDERED: DONEPEZIL HCL 10 MG TABLET PO SCH (11:30)
[2016-12-13] MEDS ORDERED: LISINOPRIL 5 MG TABLET PO SCH (11:30)
[2016-12-13] MEDS ORDERED: PANT40TA PO (11:33)
[2016-12-13] MEDS ORDERED: ACID1GRA3 GT (11:50)
[2016-12-13 15:30] VITALS: BP 131/75
[2016-12-14] MEDS ORDERED: MULTIVITAMINS, THERAPEUTIC TABLET PO SCH (09:00)
[2016-12-14] MEDS ORDERED: LOVASTATIN 20 MG TABLET PO SCH (09:00)
[2016-12-14 17:03] LABS: GLUCOSE COMMENT 1 Received Meds; GLUCOSE,POINT OF CARE 158 MG/DL (70-110)
[2016-12-14 17:08] LABS: GLUCOSE,POINT OF CARE 137 MG/DL (70-110)
== END 2016-12-13 16:15 | DRG 870 ==
LOC: EMS 10:46 → ICU 19:30 → 5S 12-09 22:23
PROVIDERS: ADMIT Internal Medicine; ATTEND Internal Medicine
PROC: 0BH17EZ Insertion of Endotracheal Airway into Trachea, Via Natural or Artificial Opening (ICD-10-PCS; 2016-12-02)
PROC: 5A1955Z Respiratory Ventilation, Greater than 96 Consecutive Hours (ICD-10-PCS; 2016-12-02)
PROC: 3E0234Z Introduction of Serum, Toxoid and Vaccine into Muscle, Percutaneous Approach (ICD-10-PCS; 2016-12-03)
PROC: 30233N1 Transfusion of Nonautologous Red Blood Cells into Peripheral Vein, Percutaneous Approach (ICD-10-PCS; principal; 2016-12-05)
DX: A41.9 Sepsis, unspecified organism (principal); J69.0 Pneumonitis due to inhalation of food and vomit; J96.00 Acute respiratory failure, unspecified whether with hypoxia or hypercapnia; G93.41 Metabolic encephalopathy; E87.2 Acidosis; E87.0 Hyperosmolality and hypernatremia; F03.90 Unspecified dementia, unspecified severity, without behavioral disturbance, psychotic disturbance, mood disturbance, and anxiety; I10 Essential (primary) hypertension; E78.5 Hyperlipidemia, unspecified; B95.7 Other staphylococcus as the cause of diseases classified elsewhere; R13.10 Dysphagia, unspecified; E11.9 Type 2 diabetes mellitus without complications; E78.00 Pure hypercholesterolemia, unspecified; L89.159 Pressure ulcer of sacral region, unspecified stage; L89.229 Pressure ulcer of left hip, unspecified stage; L89.219 Pressure ulcer of right hip, unspecified stage; L89.899 Pressure ulcer of other site, unspecified stage; D64.9 Anemia, unspecified; R19.7 Diarrhea, unspecified; Z23 Encounter for immunization; Z79.899 Other long term (current) drug therapy; Z79.4 Long term (current) use of insulin; Z86.73 Personal history of transient ischemic attack (TIA), and cerebral infarction without residual deficits; Z87.01 Personal history of pneumonia (recurrent); Z93.1 Gastrostomy status
CPT/HCPCS: 31500; 70450; 71250; 82805; 82962; 83605; 84132; 84145; 86850; 86900; 86901; 86920; 87040; 87070; 87081; 87205; 87324; 87449; 90471; 93005; 94002; 94003; 94660; 96361; 96365; 96367; 96368; 96375; 99291; C9113; J0295; J0330; J0456; J0696; J2250; J2270; J2543; J2704; J3010; J3370; J3490; J7030; J7050; J7060; P9016; P9047